=== PATIENT | female | born 1995 | race Caucasian/White ===

== ENCOUNTER 2017-09-18 11:22 | Emergency (ER) | payer OTHER ==
[~2017-09-18] VITALS: Ht 167.6 cm; Wt 81.6 kg
[2017-09-18 11:57] VITALS: BP 124/73
--- NOTE | 2017-09-18 12:08 | PHYS DOC ---
Past Medical History Past Medical History: Migraines Past Surgical History: No Surgical History Alcohol Use: None Drug Use: None Adult General Chief Complaint Chief Complaint: MULTIPLE COMPLAINTS HPI HPI Patient is a 22 year old female presents to the emergency department with a history of sore throat, nasal congestion and sinus tightness for the last 5 days. Patient states when lays down is the worst. She states today she felt like she was drowning in her own secretions. Patient denies fever, chills, nausea or vomiting. Review of Systems Review of Systems Constitutional: Denies fever or chills [] Eyes: Denies change in visual acuity, redness, or eye pain [] HENT: nasal congestion and sore throat [] Respiratory: cough denies shortness of breath [] Cardiovascular: No additional information not addressed in HPI [] GI: Denies abdominal pain, nausea, vomiting, bloody stools or diarrhea [] : Denies dysuria or hematuria [] Musculoskeletal: Denies back pain or joint pain [] Integument: Denies rash or skin lesions [] Neurologic: Denies headache, focal weakness or sensory changes [] Endocrine: Denies polyuria or polydipsia [] All other systems were reviewed and found to be within normal limits, except as documented in this note. Allergies Allergies Allergies Coded Allergies Type Severity Reaction Last Updated Verified No Known Drug Allergies 09/18/17 No Physical Exam Physical Exam Constitutional: Well developed, well nourished, no acute distress, non-toxic appearance. [] HENT: Normocephalic, atraumatic, bilateral external ears normal, oropharynx moist, no oral exudates, nose normal. Bilateral TM appear full without redness, Throat with bright redness noted, Post nasal drip noted. No anterior cervical adenopathy noted. Eyes: PERRLA, EOMI, conjunctiva normal, no discharge. [] Neck: Normal range of motion, no tenderness, supple, no stridor. [] Cardiovascular:Heart rate regular rhythm, no murmur [] Lungs & Thorax: Bilateral breath sounds clear to auscultation [] Skin: Warm, dry, no erythema, no rash. [] Extremities: No tenderness, no cyanosis, no clubbing, ROM intact, no edema. [] Neurologic: Alert and oriented X 3, normal motor function, normal sensory function, no focal deficits noted. [] Psychologic: Affect normal, judgement normal, mood normal. [] Current Patient Data Vital Signs Vital Signs Date Time Temp Pulse Resp B/P (MAP) Pulse Ox O2 Delivery O2 Flow Rate FiO2 09/18/17 11:57 97.7 106 20 124/73 (90) 100 Room Air 97.7 Lab Values Laboratory Tests Test 09/18/17 12:09 POC Urine HCG, Qualitative Hcg negative (Negative) EKG EKG [] Radiology/Procedures Radiology/Procedures [] Course & Med Decision Making Course & Med Decision Making Pertinent Labs and Imaging studies reviewed. (See chart for details) Rapid strep was negative. Urine test was negative. Patient will be placed on Augmentin 1 tablet twice a day for the next 10 days. Recommended Sudafed to help with the nasal congestion. Also recommended Mucinex DM to help with cough. Patient will be discharged home in stable condition with recommendations for plenty of fluids. Signs and symptoms return back to the emergency department has been provided. All questions and concerns have been answered at the patients bedside. I've spoken with the patient and/or caregivers. I've explained the patient's condition, diagnosis and treatment plan based on information available to me at this time. I've answered the patient's and/or caregivers questions and addressed any concerns. The patient and/or caregivers have a good understanding the patient's diagnosis, condition and treatment plan as can be expected at this point. Vital signs have been stabilized. The patient's condition is stable for discharge from the emergency department. The patient will pursue further outpatient evaluation with her primary care provider or other designated consulting physician as outlined in the discharge instructions. Patient and/or caregivers are agreeable to this plan of care and follow-up instructions have been explained in detail. The patient and/or caregivers have received these instructions in written format and expressed understanding of these discharge instructions. The patient and her caregivers are aware that if any significant change in condition or worsening of symptoms should prompt him to immediately return to this of the closest emergency department. If an emergent department is not readily available I would encourage him to call 911. [] Dragon Disclaimer Dragon Disclaimer This electronic medical record was generated, in whole or in part, using a voice recognition dictation system. Departure Departure Impression: Primary Impression: URI (upper respiratory infection) Disposition: HOME, SELF-CARE Condition: STABLE Referrals: JAMESON MUÑIZ (PCP) Patient Instructions: Upper Respiratory Infection, Adult, [id number] Additional Instructions: Activity as tolerated Tylenol or Ibuprofen for fever, chills or generalized body aches Sudafed and Mucinex DM as directed by manufacture Drink plenty of fluids Warm salt water gargles may help the throat Followup with primary care provider in 5-7 days Return to emergency department as needed for signs and symptoms that become worse. Scripts Amoxicillin/Potassium Clav (AUGMENTIN 875-125 TABLET) 1 Each Tablet 1 TAB PO BID, #20 TAB Prov: DAVID HENDERSON APRN 09/18/17 Problem Qualifiers Primary Impression: URI (upper respiratory infection) URI type: unspecified URI Qualified Codes: J06.9 - Acute upper respiratory infection, unspecified DAVID HENDERSON APRN Sep 18, 2017 12:08
[2017-09-18] MEDS ORDERED: AMOX1TAB61 PO (12:23)
[2017-09-19 08:19] LABS: NEGATIVE OBC STREP NEG; POSITIVE OBC STREP POS
== END 2017-09-18 12:30 | disposition home or self-care (01) ==
LOC: ER 11:22
DX: J06.9 Acute upper respiratory infection, unspecified (principal); G43.909 Migraine, unspecified, not intractable, without status migrainosus
CPT/HCPCS: 81025; 87070; 87880; 99284

== ENCOUNTER → 2018-07-14 | Outpatient (CLI) | payer OTHER ==
[~2018-07-14] MED LIST: AMOX1TAB61 PO
[2018-07-14 11:04] LABS: BASO % 0 % (0-3); EOS # 0.1 x10^3/uL (0.0-0.7); EOS % 1 % (0-3); HEMATOCRIT 39.6 % (36.0-47.0); HEMOGLOBIN 13.6 g/dL (12.0-15.5); LYMPH # 2.7 x10^3/uL (1.0-4.8); LYMPH % 21 % (24-48); MEAN CORPUSCULAR HEMOGLOBIN 29 pg (25-35); MEAN CORPUSCULAR HGB CONC 34 g/dL (31-37); MEAN CORPUSCULAR VOLUME 84 fL (79-100); MONO # 0.9 x10^3/uL (0.0-1.1); MONO % 7 % (0-9); NEUT # 9.5 x10^3uL (1.8-7.7); NEUT % 72 % (31-73); PLATELET COUNT 278 x10^3/uL (140-400); RED BLOOD COUNT 4.74 x10^6/uL (3.50-5.40); RED CELL DISTRIBUTION WIDTH 14.2 % (11.5-14.5); WHITE BLOOD COUNT 13.2 x10^3/uL (4.0-11.0)
== END | disposition home or self-care (01) ==
LOC: LAB 10:39
PROVIDERS: ATTEND Obstetrics & Gynecology
DX: Z32.01 Encounter for pregnancy test, result positive (principal); G43.909 Migraine, unspecified, not intractable, without status migrainosus
CPT/HCPCS: 85025; 86592; 86703; 86850; 86900; 86901; 87340

== ENCOUNTER → 2018-09-27 | Outpatient (CLI) | payer OTHER ==
--- NOTE | 2018-09-27 04:29 | RAD ---
INDICATION: Unknown dates of with evaluation of anatomy requested.. COMPARISON: No priors. TECHNIQUE: Grayscale and color ultrasound images obtained through the uterus. Findings: Single intrauterine fetus is seen. Placenta is posterior. Placental cord insertion seen. Cephalic presentation. The maturity is as follows. Estimated weight: 228 grams. The composite maturity is 18 weeks and 3 days ITALIA of 8.5 cm. Cervical length: 4.2cm. heart rate: 145 beats per minute. Four-chamber heart is seen Three-vessel cord is seen. Abdominal wall cord insertion is seen. Fluid-filled stomach and urinary bladder are seen. Bilateral kidneys are visualized. Craniocervical junction and spine is seen. BPD 42 mm, 18 week 5 day Head circumference 157 mm, 18 week 4 day Abdominal circumference 122 mm, 17 weeks 6 day Femur length 27 mm, 18 week 3 day Head circumference to abdominal circumference ratio 1.28. Impression: 1. Single live intrauterine fetus identified with positive cardiac activity. 2. The composite maturity is 18 weeks and 3 days with a sonographic EDC of 02/25/2019. 3. Estimated weight of 228 g. Electronically signed by: Darrius Ashford MD (09/27/2018 4:25 AM) [facility]
== END | disposition home or self-care (01) ==
LOC: US 02:05
PROVIDERS: ATTEND Obstetrics & Gynecology
DX: O26.842 Uterine size-date discrepancy, second trimester (principal); Z3A.18 18 weeks gestation of pregnancy
CPT/HCPCS: 76805

== ENCOUNTER 2018-12-04 11:37 | Observation (INO) | payer OTHER ==
[2018-12-04 12:31] LABS: BILIRUBIN,URINE NEGATIVE (NEG); CLARITY,URINE CLOUDY; COLOR,URINE YELLOW; NITRITE,URINE NEGATIVE (NEG); PH,URINE 7.5; PROTEIN,URINE NEGATIVE (NEG-TRACE); UROBILINOGEN,URINE 0.2 mg/dL (0.2 mg/dL)
[2018-12-04 12:47] LABS: SQUAMOUS EPITHELIAL CELL,UR MANY /LPF
[2018-12-04 12:48] LABS: RBC,URINE OCC /HPF (0-2)
[2018-12-04 12:50] LABS: BACTERIA,URINE MODERATE /HPF (0-FEW)
== END 2018-12-04 14:25 | disposition home or self-care (01) ==
LOC: 3 SO LND 11:37
PROVIDERS: ADMIT Obstetrics & Gynecology; ATTEND Obstetrics & Gynecology
DX: O26.893 Other specified pregnancy related conditions, third trimester (principal); R10.9 Unspecified abdominal pain; Z3A.28 28 weeks gestation of pregnancy
CPT/HCPCS: 81001; 87086; G0378; G0379

== ENCOUNTER 2019-02-07 05:33 | Observation (INO) | payer OTHER ==
[2019-02-07] MEDS ORDERED: IV RINGERS,LACTATED 1000ML 1,000 ML IV PRN (05:45)
[2019-02-07 06:04] LABS: BILIRUBIN,URINE NEGATIVE (NEG); CLARITY,URINE CLEAR; COLOR,URINE YELLOW; NITRITE,URINE NEGATIVE (NEG); PH,URINE 6.5; PROTEIN,URINE NEGATIVE (NEG-TRACE); UROBILINOGEN,URINE 0.2 mg/dL (0.2 mg/dL)
[2019-02-07 06:22] LABS: BACTERIA,URINE FEW /HPF (0-FEW); RBC,URINE 0 /HPF (0-2); SQUAMOUS EPITHELIAL CELL,UR MANY /LPF
== END 2019-02-07 09:56 | disposition home or self-care (01) ==
LOC: 3 SO LND 05:33
PROVIDERS: ADMIT Obstetrics & Gynecology; ATTEND Obstetrics & Gynecology
DX: O62.9 Abnormality of forces of labor, unspecified (principal); O26.893 Other specified pregnancy related conditions, third trimester; M54.9 Dorsalgia, unspecified; Z3A.37 37 weeks gestation of pregnancy; Z91.040 Latex allergy status
CPT/HCPCS: 81001; G0378; G0379

== ENCOUNTER 2019-02-16 11:20 | Observation (INO) | payer OTHER ==
[2019-02-16] MEDS ORDERED: IV RINGERS,LACTATED 1000ML 1,000 ML IV SCH (12:15)
== END 2019-02-16 13:45 | disposition home or self-care (01) ==
LOC: 3 SO LND 11:20
PROVIDERS: ADMIT Obstetrics & Gynecology; ATTEND Obstetrics & Gynecology
DX: O62.9 Abnormality of forces of labor, unspecified (principal); Z3A.38 38 weeks gestation of pregnancy
CPT/HCPCS: G0378; G0379

== ENCOUNTER 2019-02-25 05:54 | Inpatient (IN) | payer OTHER ==
[~2019-02-25] VITALS: Ht 165.1 cm; Wt 100.2 kg
[2019-02-25] MEDS ORDERED: TERBUTALINE 1 MG/ML VIAL. SQ PRN (06:00)
[2019-02-25] MEDS ORDERED: 0.9 % SODIUM CHLORIDE 10 ML DISP.SYRIN. IV PRN ×2 (06:00→18:45)
[2019-02-25] MEDS ORDERED: LIDOCAINE 1% PF 30 ML VIAL. INJ PRN (06:00)
[2019-02-25] MEDS ORDERED: NALBUPHINE 10 MG/ML AMPUL. IV PRN (06:00)
[2019-02-25] MEDS ORDERED: ONDANSETRON PF 4 MG/2 ML VIAL. IV PRN ×2 (06:00→18:45)
[2019-02-25] MEDS ORDERED: ACETAMINOPHEN 325 MG TABLET. PO PRN (06:00)
[2019-02-25] MEDS ORDERED: OXYTOCIN 30 UNIT/500 ML PREMIX 500 ML IV PRN ×3 (06:00→18:45)
[2019-02-25] MEDS ORDERED: fentaNYL PF VIAL 100 MCG/2 ML VIAL IV PRN ×2 (06:00)
[2019-02-25 06:51] LABS: BASO % 0 % (0-3); EOS # 0.1 x10^3/uL (0.0-0.7); EOS % 1 % (0-3); HEMATOCRIT 34.1 % (36.0-47.0); HEMOGLOBIN 11.1 g/dL (12.0-15.5); LYMPH % 21 % (24-48); MEAN CORPUSCULAR HEMOGLOBIN 25 pg (25-35); MEAN CORPUSCULAR HGB CONC 33 g/dL (31-37); MEAN CORPUSCULAR VOLUME 78 fL (79-100); MONO % 7 % (0-9); NEUT # 10.3 x10^3uL (1.8-7.7); NEUT % 71 % (31-73); PLATELET COUNT 305 x10^3/uL (140-400); RED BLOOD COUNT 4.39 x10^6/uL (3.50-5.40); RED CELL DISTRIBUTION WIDTH 17.4 % (11.5-14.5); WHITE BLOOD COUNT 14.5 x10^3/uL (4.0-11.0)
[2019-02-25 06:57] LABS: BILIRUBIN,URINE NEGATIVE (NEG); CLARITY,URINE CLEAR; COLOR,URINE YELLOW; NITRITE,URINE NEGATIVE (NEG); PROTEIN,URINE NEGATIVE (NEG-TRACE)
[2019-02-25] MEDS ORDERED: OXYTOCIN PREMIX 30 UNIT/500 ML BAG. IV ONE (07:00)
[2019-02-25 07:15] LABS: BACTERIA,URINE MODERATE /HPF (0-FEW); RBC,URINE 0 /HPF (0-2); SQUAMOUS EPITHELIAL CELL,UR MANY /LPF
--- NOTE | 2019-02-25 08:29 | PDOC1 ---
OB - History Hx of Present Care: Good Care Ultrasounds: Normal mid trimester US Obstetrical Complications: None Medical Complications: None Past Family/Social History * Past Medical, Surgical, Family and Obstetric Histories reviewed from chart. Rubella: Immune RPR/VDRL: Negative GBS Status: Negative HBsAG: Negative OB - Chief Complaint & HPI Date of Admission: Date of Admission: February 25, 2019 at 05:54 Chief Complaint/History : 1 Para: 0 EGA: 39 Reason for admission: induction of labor Indication for induction: maternal discomfort Admission Nurse Assessment Rev: Yes OB - Admission Exam Physical Exam HEENT: Normal Heart: Regular Rate Lungs: Clear Abdomen: Gravid, Non tender, Soft Extremities: Edema Reflexes: Normal Cervical Dilatation: 4cm Effacement: 75% Station: -3 Membranes: Intact Heart Rate: Normal Accelerations: Accelerations Present Decelerations: No decelerations Contractions on Admission: >10 Minutes Apart Intensity: Mild Text A: 39 wks IUP IOL secondary maternal discomforts and advanced cervical dilation P: Start Pitocin IOL. ESTHER ABDULLAHI Jr, MD February 25, 2019 08:29
[2019-02-25] MEDS ORDERED: ROPIVacaine 0.2% PF 10 ML VIAL. ONE ×2 (09:53→12:00)
[2019-02-25] MEDS ORDERED: NALOXONE 0.4 MG/ML VIAL. IV PRN (10:00)
[2019-02-25] MEDS ORDERED: ePHEDrine PF IN SALINE 50 MG/10 ML SYRINGE. IV PRN (10:00)
[2019-02-25] MEDS ORDERED: ROPIVacaine 0.2% PF 10 ML VIAL. EPID PRN (10:00)
[2019-02-25] MEDS ORDERED: L&D EPIDURAL CASSETTE 100 ML EPID PRN (10:00)
[2019-02-25] MEDS: IV RINGERS,LACTATED 1000ML 1,000 ML IV SCH ×4 (10:28→19:52)
[2019-02-25] MEDS: L&D EPIDURAL SYRINGE 50 ML EPID PRN ×3 (10:30→16:58)
[2019-02-25] MEDS ORDERED: BENZOCAINE 20% TOPICAL AEROSOL SPRAY 57GM CAN. TP PRN (14:15)
[2019-02-25] MEDS ORDERED: LIDOCAINE 2% PF 5 ML VIAL. ONE ×2 (14:36→17:04)
[2019-02-25] MEDS ORDERED: CITRIC ACID/SODIUM CITRATE 30 ML SOLUTION. ONE ×2 (17:26→18:00)
[2019-02-25] MEDS ORDERED: ePHEDrine PF IN SALINE 50 MG/10 ML SYRINGE. IV ONE (17:33)
[2019-02-25] MEDS ORDERED: OXYTOCIN 10 UNIT/ML VIAL. ONE ×5 (17:34→17:59)
[2019-02-25] MEDS ORDERED: ceFAZolin 2GM PREMIX 2 GM/50 ML BAG IV ONE (18:00)
[2019-02-25] MEDS ORDERED: MORPHINE PF 5 MG/10 ML VIAL. ONE (18:04)
[2019-02-25] MEDS ORDERED: ONDANSETRON PF 4 MG/2 ML VIAL. ONE (18:10)
--- NOTE | 2019-02-25 18:34 | PDOC4 ---
OB Operative Note Date: February 25, 2019 PRE OP DIAGNOSIS: NRFHT (FTP) POST OP DIAGNOSIS: Other (Same) OPERATION PERFORMED: L [facility] Surgeon Dr. Miller Anesthesia: Regional (Epidural) Blood Loss 700 ml Specimen placenta and OB Findings: Position (Vertex), Sex (Male), (8/9), Weight (3145 Gram), Fluid (Meconium) Complications none Additional Remarks pt. stable ESTHER MILLER Jr, MD February 25, 2019 18:34
[2019-02-25] MEDS ORDERED: IBUPROFEN 400 MG TABLET. PO PRN (18:45)
[2019-02-25] MEDS ORDERED: ZOLPIDEM 5 MG TABLET. PO PRN (18:45)
[2019-02-25] MEDS ORDERED: SIMETHICONE 80 MG TAB.CHEW PO PRN (18:45)
[2019-02-25] MEDS ORDERED: KETOROLAC 30 MG/ML VIAL. IV PRN (18:45)
[2019-02-25] MEDS ORDERED: MAG HYDROX/ALUMINUM HYD/SIMETH 30 ML ORAL.SUSP PO PRN (18:45)
[2019-02-25] MEDS ORDERED: diphenhydrAMINE ORAL ELIXIR 12.5 MG/5 ML ML PO PRN (18:45)
[2019-02-25] MEDS ORDERED: oxyCODONE/APAP 5/325 1 TAB TABLET PO PRN (18:45)
--- NOTE | 2019-02-25 21:09 | OP ---
DATE OF SURGERY: PREOPERATIVE DIAGNOSES: 1. 39 weeks intrauterine . 2. intolerance to labor. 3. Failure to progress. POSTOPERATIVE DIAGNOSES: 1. 39 weeks intrauterine . 2. intolerance to labor. 3. Failure to progress. PROCEDURE: Primary low transverse section. SURGEON: Esther Miller MD ANESTHESIA: Epidural. ESTIMATED BLOOD LOSS: 700 mL. COMPLICATIONS: None. FINDINGS: Viable male , Apgars 8 and 9, weight 3145 grams, three-vessel cord, placenta delivered manually. COMPLICATIONS: None. SUMMARY: A 23-year-old 1 at 39 weeks presented for induction of labor secondary to maternal discomforts with and advanced cervical dilation. The patient started at 4 cm and never progressed past 5 cm. She had moderate stained meconium amniotic fluid. The patient was intolerant of labor. The patient required emergency section. She was counseled on the risks, benefits and expectations and voiced clear understanding to proceed. DESCRIPTION OF PROCEDURE: The patient was taken to surgery suite and placed in dorsal supine position. She was prepped with ChloraPrep and draped in sterile fashion. After adequate anesthesia, Pfannenstiel skin incision was made with scalpel down to and through the fascia. The fascia was extended laterally using curved Jarvis scissors. The superior edge of the fascia was grasped with 2 Twyla clamps and dissected free of the abdominal rectus muscles using blunt dissection along with Bovie cautery. Same process took place inferiorly. The abdominal rectus muscles were then dissected bluntly at the midline. Peritoneum was grasped with 2 hemostats, entered sharply with Metzenbaum scissors. This incision was extended superiorly as well as inferiorly. The Romel ring retractor was placed. Low transverse hysterotomy incision was made with scalpel down to the . The hysterotomy incision was extended laterally and superiorly digitally. With the aid of fundal pressure, the 's head was delivered in a smooth atraumatic manner. With additional fundal pressure, the anterior shoulder was delivered followed by posterior shoulder and rest of the male was delivered. Infant was suctioned with bulb syringe orally and nasally, umbilical cord was clamped twice and cut and a viable male was handed to waiting nursing staff. Umbilical cord blood was then obtained as well as arterial pH. Three-vessel cord placenta was delivered manually. The uterus was then exteriorized and cleared of clot and debris with a moist lap. Hysterotomy incision was reapproximated using 1 Vicryl suture in running locked fashion. Uterus palpated firm. Fallopian tubes and ovaries appeared normal bilaterally. Posterior cul-de-sac was cleared of clot and debris with a moist lap. The uterus was then returned to the abdomen. Pericolic gutters were cleared of clot and debris with a moist lap. Hysterotomy incision was hemostatic. The Romel ring retractor was removed. Peritoneum was reapproximated using #1 Vicryl suture in a running fashion. Fascia was reapproximated using 0 Vicryl suture in running fashion. Skin was reapproximated using 4-0 Vicryl suture in subcuticular manner. The patient tolerated the procedure well, was sent to recovery room in stable condition. Sponge and needle count correct x 3. ESTHER MILLER MD DR: SEDRICK/elisabeth JOB#: [id number] / [id number]
[2019-02-25 21:30] VITALS: BP 111/65
[2019-02-25 23:30] VITALS: BP 108/66
[2019-02-26] MEDS ORDERED: diphenhydrAMINE 50 MG/ML VIAL IVP PRN
[2019-02-26] MEDS ORDERED: diphenhydrAMINE HCL 25 MG CAPSULE PO PRN
[2019-02-26] MEDS: IV RINGERS,LACTATED 1000ML 1,000 ML IV SCH ×2 (00:20→09:49)
[2019-02-26 04:44] LABS: BASO # 0.1 x10^3/uL (0.0-0.2); BASO % 0 % (0-3); EOS % 0 % (0-3); HEMATOCRIT 30.1 % (36.0-47.0); HEMOGLOBIN 9.6 g/dL (12.0-15.5); LYMPH # 2.1 x10^3/uL (1.0-4.8); LYMPH % 17 % (24-48); MEAN CORPUSCULAR HEMOGLOBIN 25 pg (25-35); MEAN CORPUSCULAR HGB CONC 32 g/dL (31-37); MEAN CORPUSCULAR VOLUME 79 fL (79-100); MONO # 0.8 x10^3/uL (0.0-1.1); MONO % 7 % (0-9); NEUT # 9.9 x10^3uL (1.8-7.7); NEUT % 76 % (31-73); PLATELET COUNT 255 x10^3/uL (140-400); RED BLOOD COUNT 3.82 x10^6/uL (3.50-5.40); RED CELL DISTRIBUTION WIDTH 17.4 % (11.5-14.5); WHITE BLOOD COUNT 12.9 x10^3/uL (4.0-11.0)
[2019-02-26 05:30] VITALS: BP 113/74
[2019-02-26] MEDS: IBUPROFEN 400 MG TABLET. PO PRN ×2 (05:46→13:22)
[2019-02-26] MEDS: DOCUSATE SODIUM 100 MG CAPSULE. PO PRN (09:07)
[2019-02-26] MEDS: FERROUS SULFATE 325 MG TABLET. PO SCH ×2 (09:07→17:00)
--- NOTE | 2019-02-26 16:08 | PDOC ---
OB Progress Note Date of Service 02/26/19 Time of Evaluation 1605 Notes PT. sleeping well. Pain controlled. Lab Laboratory Tests Test 02/25/19 06:15 02/25/19 06:20 02/26/19 04:30 Urine Collection Type Unknown Urine Color Yellow Urine Clarity Clear Urine pH 6.0 Urine Specific Hartman 1.015 Urine Protein Negative mg/dL (NEG-TRACE) Urine Glucose (UA) Negative mg/dL (NEG) Urine Ketones (Stick) Negative mg/dL (NEG) Urine Blood Negative (NEG) Urine Nitrite Negative (NEG) Urine Bilirubin Negative (NEG) Urine Urobilinogen Dipstick 1.0 mg/dL (0.2 mg/dL) Urine Leukocyte Esterase Moderate (NEG) Urine RBC 0 /HPF (0-2) Urine WBC 5-10 /HPF (0-4) Urine Squamous Epithelial Cells Many /LPF Urine Bacteria Moderate /HPF (0-FEW) White Blood Count 14.5 x10^3/uL (4.0-11.0) 12.9 x10^3/uL (4.0-11.0) Red Blood Count 4.39 x10^6/uL (3.50-5.40) 3.82 x10^6/uL (3.50-5.40) Hemoglobin 11.1 g/dL (12.0-15.5) 9.6 g/dL (12.0-15.5) Hematocrit 34.1 % (36.0-47.0) 30.1 % (36.0-47.0) Mean Corpuscular Volume 78 fL (79-100) 79 fL (79-100) Mean Corpuscular Hemoglobin 25 pg (25-35) 25 pg (25-35) Mean Corpuscular Hemoglobin Concent 33 g/dL (31-37) 32 g/dL (31-37) Red Cell Distribution Width 17.4 % (11.5-14.5) 17.4 % (11.5-14.5) Platelet Count 305 x10^3/uL (140-400) 255 x10^3/uL (140-400) Neutrophils (%) (Auto) 71 % (31-73) 76 % (31-73) Lymphocytes (%) (Auto) 21 % (24-48) 17 % (24-48) Monocytes (%) (Auto) 7 % (0-9) 7 % (0-9) Eosinophils (%) (Auto) 1 % (0-3) 0 % (0-3) Basophils (%) (Auto) 0 % (0-3) 0 % (0-3) Neutrophils # (Auto) 10.3 x10^3uL (1.8-7.7) 9.9 x10^3uL (1.8-7.7) Lymphocytes # (Auto) 3.0 x10^3/uL (1.0-4.8) 2.1 x10^3/uL (1.0-4.8) Monocytes # (Auto) 1.0 x10^3/uL (0.0-1.1) 0.8 x10^3/uL (0.0-1.1) Eosinophils # (Auto) 0.1 x10^3/uL (0.0-0.7) 0.0 x10^3/uL (0.0-0.7) Basophils # (Auto) 0.0 x10^3/uL (0.0-0.2) 0.1 x10^3/uL (0.0-0.2) Treponema pallidum Antibody Nonreactive (Nonreactive) Laboratory Tests Test 02/26/19 04:30 White Blood Count 12.9 x10^3/uL (4.0-11.0) Red Blood Count 3.82 x10^6/uL (3.50-5.40) Hemoglobin 9.6 g/dL (12.0-15.5) Hematocrit 30.1 % (36.0-47.0) Mean Corpuscular Volume 79 fL (79-100) Mean Corpuscular Hemoglobin 25 pg (25-35) Mean Corpuscular Hemoglobin Concent 32 g/dL (31-37) Red Cell Distribution Width 17.4 % (11.5-14.5) Platelet Count 255 x10^3/uL (140-400) Neutrophils (%) (Auto) 76 % (31-73) Lymphocytes (%) (Auto) 17 % (24-48) Monocytes (%) (Auto) 7 % (0-9) Eosinophils (%) (Auto) 0 % (0-3) Basophils (%) (Auto) 0 % (0-3) Neutrophils # (Auto) 9.9 x10^3uL (1.8-7.7) Lymphocytes # (Auto) 2.1 x10^3/uL (1.0-4.8) Monocytes # (Auto) 0.8 x10^3/uL (0.0-1.1) Eosinophils # (Auto) 0.0 x10^3/uL (0.0-0.7) Basophils # (Auto) 0.1 x10^3/uL (0.0-0.2) Medications Current Medications Sodium Chloride (Normal Saline Flush) 3 ml QSHIFT PRN IV AFTER MEDS AND BLOOD DRAWS; Start 02/25/19 at 06:00; Stop 02/26/19 at 00:05; Status DC Ringer's Solution 1,000 ml @ 125 mls/hr Q8H IV Last administered on 02/25/19at 17:09; Start 02/25/19 at 05:58; Stop 02/26/19 at 00:05; Status DC Nalbuphine HCl (Nubain) 10 mg PRN Q1HR PRN IV Severe labor pain; Start 02/25/19 at 06:00 Fentanyl Citrate (Fentanyl 2ml Vial) 100 mcg PRN Q30MIN PRN IV Severe pain; Start 02/25/19 at 06:00 Fentanyl Citrate (Fentanyl 2ml Vial) 50 mcg PRN Q10MIN PRN IV Labor pain; Start 02/25/19 at 06:00 Acetaminophen (Tylenol) 650 mg PRN Q6HRS PRN PO MILD PAIN / TEMP; Start 02/25/19 at 06:00 Ondansetron HCl (Zofran) 4 mg PRN Q4HRS PRN IV NAUSEA/VOMITING; Start 02/25/19 at 06:00; Stop 02/26/19 at 00:05; Status DC Terbutaline Sulfate (Brethine) 0.25 mg 1X PRN PRN SQ SEE COMMENTS; Start 02/25/19 at 06:00; Stop 02/26/19 at 05:59; Status DC Lidocaine HCl (Xylocaine 1% Pf 30ml Vial) 30 ml 1X PRN PRN INJ SEE COMMENTS; Start 02/25/19 at 06:00; Stop 02/27/19 at 05:59 Oxytocin/Sodium Chloride 500 ml @ 0 mls/hr CONT PRN IV SEE I/O RECORD; Start 02/25/19 at 06:00; Stop 02/26/19 at 00:05; Status DC Oxytocin/Sodium Chloride 500 ml @ 0 mls/hr CONT PRN PRN IV Post delivery bleeding; Start 02/25/19 at 06:00; Stop 02/26/19 at 00:05; Status DC Ibuprofen (Motrin) 800 mg PRN Q6HRS PRN PO PAIN Last administered on 02/26/19at 13:22; Start 02/25/19 at 06:00 Ropivacaine/ Fentanyl/NS 100 ml @ 14 mls/hr CONT PRN EPID PAIN; Start 02/25/19 at 10:00; Stop 02/26/19 at 08:59; Status UNV Ringer's Solution 1,000 ml @ 125 mls/hr Q8H IV Last administered on 02/26/19at 00:20; Start 02/25/19 at 09:49; Stop 02/26/19 at 11:01; Status DC Ephedrine Sulfate (ePHEDrine PF IN SALINE SYRINGE) 10 mg PRN Q2MIN PRN IV IF SBP<90; Start 02/25/19 at 10:00 Naloxone HCl (Narcan) 0.04 mg PRN Q1MIN PRN IV SEE COMMENTS; Start 02/25/19 at 10:00 Ropivacaine (Naropin 0.2%) 40 ml PRN 1X PRN EPID SEE COMMENTS; Start 02/25/19 at 10:00 Ropivacaine/ Fentanyl/NS 50 ml @ 14 mls/hr CONT PRN EPID PAIN Last administered on 02/25/19at 16:58; Start 02/25/19 at 10:00 Ropivacaine (Naropin 0.2%) 10 ml STK-MED ONCE .ROUTE ; Start 02/25/19 at 09:53; Stop 02/25/19 at 09:54; Status DC Oxytocin/Sodium Chloride (Oxytocin Premix Infusion) 30 unit STK-MED ONCE IV ; Start 02/25/19 at 07:00; Stop 02/25/19 at 12:15; Status DC Benzocaine (Americaine) 1 spray PRN Q4HRS PRN TP PAIN Last administered on 02/25at 14:10; Start 02/25/19 at 14:15 Lidocaine HCl (Lidocaine Pf 2% Vial) 5 ml STK-MED ONCE .ROUTE ; Start 02/25/19 at 14:36; Stop 02/25/19 at 14:37; Status DC Lidocaine HCl (Lidocaine Pf 2% Vial) 5 ml STK-MED ONCE .ROUTE ; Start 02/25/19 at 17:04; Stop 02/25/19 at 17:05; Status DC Cefazolin Sodium/ Dextrose 50 ml @ 100 mls/hr 1X ONCE IV ; Start 02/25/19 at 17:30; Stop 02/25/19 at 17:59; Status DC Citric Acid/ Sodium Citrate (Bicitra) 30 ml STK-MED ONCE .ROUTE ; Start 02/25/19 at 17:26; Stop 02/25/19 at 17:27; Status DC Ephedrine Sulfate (ePHEDrine PF IN SALINE SYRINGE) 50 mg STK-MED ONCE IV ; Start 02/25/19 at 17:33; Stop 02/25/19 at 17:34; Status DC Oxytocin (Pitocin) 10 unit STK-MED ONCE .ROUTE ; Start 02/25/19 at 17:34; Stop 02/25/19 at 17:35; Status DC Oxytocin (Pitocin) 10 unit STK-MED ONCE .ROUTE ; Start 02/25/19 at 17:34; Stop 02/25/19 at 17:35; Status DC Oxytocin (Pitocin) 10 unit STK-MED ONCE .ROUTE ; Start 02/25/19 at 17:34; Stop 02/25/19 at 17:35; Status DC Oxytocin (Pitocin) 10 unit STK-MED ONCE .ROUTE ; Start 02/25/19 at 17:59; Stop 02/25/19 at 18:00; Status DC Oxytocin (Pitocin) 10 unit STK-MED ONCE .ROUTE ; Start 02/25/19 at 17:59; Stop 02/25/19 at 18:00; Status DC Morphine Sulfate (Morphine Preservative Free) 5 mg STK-MED ONCE .ROUTE ; Start 02/25/19 at 18:04; Stop 02/25/19 at 18:05; Status DC Ondansetron HCl (Zofran) 4 mg STK-MED ONCE .ROUTE ; Start 02/25/19 at 18:10; Stop 02/25/19 at 18:11; Status DC Sodium Chloride (Normal Saline Flush) 3 ml QSHIFT PRN IV AFTER MEDS AND BLOOD DRAWS; Start 02/25/19 at 18:45 Oxytocin/Sodium Chloride 500 ml @ 125 mls/hr CONT PRN IV EXCESSIVE POST- BLEEDING; Start 02/25/19 at 18:45; Stop 02/26/19 at 02:44; Status DC Ibuprofen (Motrin) 800 mg PRN Q4HRS PRN PO INFLAMMATION; Start 02/25/19 at 18:45; Status Cancel Ondansetron HCl (Zofran) 4 mg PRN Q6HRS PRN IV NAUSEA/VOMITING; Start 02/25/19 at 18:45 Docusate Sodium (Colace) 100 mg PRN BID PRN PO CONSTIPATION Last administered on 02/26/19at 09:07; Start 02/25/19 at 18:45 Al Hydroxide/Mg Hydroxide (Mylanta Plus Xs) 30 ml PRN Q4HRS PRN PO HEARTBURN / GAS; Start 02/25/19 at 18:45 Simethicone (Gas-X) 80 mg PRN AFTMEALHC PRN PO GAS / BLOATING; Start 02/25/19 at 18:45 Diphenhydramine HCl (Benadryl Oral Elixir) 12.5 mg PRN Q6HRS PRN PO ITCHING; Start 02/25/19 at 18:45 Ferrous Sulfate (Feosol) 325 mg BIDWMEALS PO Last administered on 02/26/19at 09:07; Start 02/26/19 at 08:00 Zolpidem Tartrate (Ambien) 5 mg PRN QHS PRN PO INSOMNIA, MAY REPEAT X1; Start 02/25/19 at 18:45 Oxycodone/ Acetaminophen (Percocet 5/325) 2 tab PRN Q4HRS PRN PO MODERATE PAIN, SEVERE PAIN Last administered on 02/26/19at 05:46; Start 02/25/19 at 18:45 Ketorolac Tromethamine (Toradol 30mg Vial) 30 mg PRN Q6HRS PRN IV PAIN Last administered on 02/25/19at 20:38; Start 02/25/19 at 18:45; Stop 03/02/19 at 18:44 Diphenhydramine HCl (Benadryl) 50 mg PRN Q6HRS PRN PO ITCHING; Start 02/26/19 at 00:00 Diphenhydramine HCl (Benadryl) 25 mg PRN Q6HRS PRN IVP ITCHING Last administered on 02/26/19at 00:20; Start 02/26/19 at 00:00 Active Scripts Active Augmentin 875-125 Tablet (Amoxicillin/Potassium Clav) 1 Each Tablet 1 Tab PO BID Exam Bandage in place and dry per nursing. Assessment POD#1 s/p c/s Plan of Care: Continue current Tx, Mgmt ESTHER ABDULLAHI Jr, MD February 26, 2019 16:08
[2019-02-26 18:06] VITALS: BP 112/64
[2019-02-26 20:30] VITALS: BP 109/65
[2019-02-27 03:20] VITALS: BP 100/61
[2019-02-27] MEDS: IBUPROFEN 400 MG TABLET. PO PRN ×2 (03:25→17:14)
[2019-02-27 11:20] VITALS: BP 114/66
--- NOTE | 2019-02-27 13:39 | PDOC ---
OB Progress Note Date of Service 02/27/19 Time of Evaluation 1340 Notes PT. feeling well. Pain controlled. Breast feeding. Lab Laboratory Tests Test 02/26/19 04:30 White Blood Count 12.9 x10^3/uL (4.0-11.0) Red Blood Count 3.82 x10^6/uL (3.50-5.40) Hemoglobin 9.6 g/dL (12.0-15.5) Hematocrit 30.1 % (36.0-47.0) Mean Corpuscular Volume 79 fL (79-100) Mean Corpuscular Hemoglobin 25 pg (25-35) Mean Corpuscular Hemoglobin Concent 32 g/dL (31-37) Red Cell Distribution Width 17.4 % (11.5-14.5) Platelet Count 255 x10^3/uL (140-400) Neutrophils (%) (Auto) 76 % (31-73) Lymphocytes (%) (Auto) 17 % (24-48) Monocytes (%) (Auto) 7 % (0-9) Eosinophils (%) (Auto) 0 % (0-3) Basophils (%) (Auto) 0 % (0-3) Neutrophils # (Auto) 9.9 x10^3uL (1.8-7.7) Lymphocytes # (Auto) 2.1 x10^3/uL (1.0-4.8) Monocytes # (Auto) 0.8 x10^3/uL (0.0-1.1) Eosinophils # (Auto) 0.0 x10^3/uL (0.0-0.7) Basophils # (Auto) 0.1 x10^3/uL (0.0-0.2) Medications Current Medications Sodium Chloride (Normal Saline Flush) 3 ml QSHIFT PRN IV AFTER MEDS AND BLOOD DRAWS; Start 02/25/19 at 06:00; Stop 02/26/19 at 00:05; Status DC Ringer's Solution 1,000 ml @ 125 mls/hr Q8H IV Last administered on 02/25/19at 17:09; Start 02/25/19 at 05:58; Stop 02/26/19 at 00:05; Status DC Nalbuphine HCl (Nubain) 10 mg PRN Q1HR PRN IV Severe labor pain; Start 02/25/19 at 06:00 Fentanyl Citrate (Fentanyl 2ml Vial) 100 mcg PRN Q30MIN PRN IV Severe pain; Start 02/25/19 at 06:00 Fentanyl Citrate (Fentanyl 2ml Vial) 50 mcg PRN Q10MIN PRN IV Labor pain; Start 02/25/19 at 06:00 Acetaminophen (Tylenol) 650 mg PRN Q6HRS PRN PO MILD PAIN / TEMP; Start 02/25/19 at 06:00 Ondansetron HCl (Zofran) 4 mg PRN Q4HRS PRN IV NAUSEA/VOMITING; Start 02/25/19 at 06:00; Stop 02/26/19 at 00:05; Status DC Terbutaline Sulfate (Brethine) 0.25 mg 1X PRN PRN SQ SEE COMMENTS; Start 02/25/19 at 06:00; Stop 02/26/19 at 05:59; Status DC Lidocaine HCl (Xylocaine 1% Pf 30ml Vial) 30 ml 1X PRN PRN INJ SEE COMMENTS; Start 02/25/19 at 06:00; Stop 02/27/19 at 05:59; Status DC Oxytocin/Sodium Chloride 500 ml @ 0 mls/hr CONT PRN IV SEE I/O RECORD; Start 02/25/19 at 06:00; Stop 02/26/19 at 00:05; Status DC Oxytocin/Sodium Chloride 500 ml @ 0 mls/hr CONT PRN PRN IV Post delivery bleeding; Start 02/25/19 at 06:00; Stop 02/26/19 at 00:05; Status DC Ibuprofen (Motrin) 800 mg PRN Q6HRS PRN PO PAIN Last administered on 02/27/19at 03:25; Start 02/25/19 at 06:00 Ropivacaine/ Fentanyl/NS 100 ml @ 14 mls/hr CONT PRN EPID PAIN; Start 02/25/19 at 10:00; Stop 02/26/19 at 08:59; Status UNV Ringer's Solution 1,000 ml @ 125 mls/hr Q8H IV Last administered on 02/26/19at 00:20; Start 02/25/19 at 09:49; Stop 02/26/19 at 11:01; Status DC Ephedrine Sulfate (ePHEDrine PF IN SALINE SYRINGE) 10 mg PRN Q2MIN PRN IV IF SBP<90; Start 02/25/19 at 10:00 Naloxone HCl (Narcan) 0.04 mg PRN Q1MIN PRN IV SEE COMMENTS; Start 02/25/19 at 10:00 Ropivacaine (Naropin 0.2%) 40 ml PRN 1X PRN EPID SEE COMMENTS; Start 02/25/19 at 10:00 Ropivacaine/ Fentanyl/NS 50 ml @ 14 mls/hr CONT PRN EPID PAIN Last administered on 02/25/19at 16:58; Start 02/25/19 at 10:00 Ropivacaine (Naropin 0.2%) 10 ml STK-MED ONCE .ROUTE ; Start 02/25/19 at 09:53; Stop 02/25/19 at 09:54; Status DC Oxytocin/Sodium Chloride (Oxytocin Premix Infusion) 30 unit STK-MED ONCE IV ; Start 02/25/19 at 07:00; Stop 02/25/19 at 12:15; Status DC Benzocaine (Americaine) 1 spray PRN Q4HRS PRN TP PAIN Last administered on 02/25/19at 14:10; Start 02/25/19 at 14:15 Lidocaine HCl (Lidocaine Pf 2% Vial) 5 ml STK-MED ONCE .ROUTE ; Start 02/25/19 at 14:36; Stop 02/25/19 at 14:37; Status DC Lidocaine HCl (Lidocaine Pf 2% Vial) 5 ml STK-MED ONCE .ROUTE ; Start 02/25/19 at 17:04; Stop 02/25/19 at 17:05; Status DC Cefazolin Sodium/ Dextrose 50 ml @ 100 mls/hr 1X ONCE IV ; Start 02/25/19 at 17:30; Stop 02/25/19 at 17:59; Status DC Citric Acid/ Sodium Citrate (Bicitra) 30 ml STK-MED ONCE .ROUTE ; Start 02/25/19 at 17:26; Stop 02/25/19 at 17:27; Status DC Ephedrine Sulfate (ePHEDrine PF IN SALINE SYRINGE) 50 mg STK-MED ONCE IV ; Start 02/25/19 at 17:33; Stop 02/25/19 at 17:34; Status DC Oxytocin (Pitocin) 10 unit STK-MED ONCE .ROUTE ; Start 02/25/19 at 17:34; Stop 02/25/19 at 17:35; Status DC Oxytocin (Pitocin) 10 unit STK-MED ONCE .ROUTE ; Start 02/25/19 at 17:34; Stop 02/25/19 at 17:35; Status DC Oxytocin (Pitocin) 10 unit STK-MED ONCE .ROUTE ; Start 02/25/19 at 17:34; Stop 02/25/19 at 17:35; Status DC Oxytocin (Pitocin) 10 unit STK-MED ONCE .ROUTE ; Start 02/25/19 at 17:59; Stop 02/25/19 at 18:00; Status DC Oxytocin (Pitocin) 10 unit STK-MED ONCE .ROUTE ; Start 02/25/19 at 17:59; Stop 02/25/19 at 18:00; Status DC Morphine Sulfate (Morphine Preservative Free) 5 mg STK-MED ONCE .ROUTE ; Start 02/25/19 at 18:04; Stop 02/25/19 at 18:05; Status DC Ondansetron HCl (Zofran) 4 mg STK-MED ONCE .ROUTE ; Start 02/25/19 at 18:10; Stop 02/25/19 at 18:11; Status DC Sodium Chloride (Normal Saline Flush) 3 ml QSHIFT PRN IV AFTER MEDS AND BLOOD DRAWS; Start 02/25/19 at 18:45 Oxytocin/Sodium Chloride 500 ml @ 125 mls/hr CONT PRN IV EXCESSIVE POST- BLEEDING; Start 02/25/19 at 18:45; Stop 02/26/19 at 02:44; Status DC Ibuprofen (Motrin) 800 mg PRN Q4HRS PRN PO INFLAMMATION; Start 02/25/19 at 18:45; Status Cancel Ondansetron HCl (Zofran) 4 mg PRN Q6HRS PRN IV NAUSEA/VOMITING; Start 02/25/19 at 18:45 Docusate Sodium (Colace) 100 mg PRN BID PRN PO CONSTIPATION Last administered on 02/26/19at 09:07; Start 02/25/19 at 18:45 Al Hydroxide/Mg Hydroxide (Mylanta Plus Xs) 30 ml PRN Q4HRS PRN PO HEARTBURN / GAS; Start 02/25/19 at 18:45 Simethicone (Gas-X) 80 mg PRN AFTMEALHC PRN PO GAS / BLOATING; Start 02/25/19 at 18:45 Diphenhydramine HCl (Benadryl Oral Elixir) 12.5 mg PRN Q6HRS PRN PO ITCHING; Start 02/25/19 at 18:45 Ferrous Sulfate (Feosol) 325 mg BIDWMEALS PO Last administered on 02/26/19at 09:07; Start 02/26/19 at 08:00; Stop 02/26/19 at 21:28; Status DC Zolpidem Tartrate (Ambien) 5 mg PRN QHS PRN PO INSOMNIA, MAY REPEAT X1; Start 02/25/19 at 18:45 Oxycodone/ Acetaminophen (Percocet 5/325) 2 tab PRN Q4HRS PRN PO MODERATE PAIN, SEVERE PAIN Last administered on 02/26/19at 05:46; Start 02/25/19 at 18:45 Ketorolac Tromethamine (Toradol 30mg Vial) 30 mg PRN Q6HRS PRN IV PAIN Last administered on 02/25/19at 20:38; Start 02/25/19 at 18:45; Stop 03/02/19 at 18:44 Diphenhydramine HCl (Benadryl) 50 mg PRN Q6HRS PRN PO ITCHING; Start 02/26/19 at 00:00 Diphenhydramine HCl (Benadryl) 25 mg PRN Q6HRS PRN IVP ITCHING Last administered on 02/26/19at 00:20; Start 02/26/19 at 00:00 Active Scripts Active Augmentin 875-125 Tablet (Amoxicillin/Potassium Clav) 1 Each Tablet 1 Tab PO BID Exam Abd: soft, non tender fundus firm Incision site: clean, dry and intact Assessment POD#2 s/p c/s Plan of Care: Continue current Tx, ESTHER Fisher Jr, MD February 27, 2019 13:39
[2019-02-27 15:35] VITALS: BP 112/64
[2019-02-27] MEDS: DOCUSATE SODIUM 100 MG CAPSULE. PO PRN (17:14)
[2019-02-27 20:25] VITALS: BP 120/76
[2019-02-28 04:50] VITALS: BP 155/90
[2019-02-28] MEDS: IBUPROFEN 400 MG TABLET. PO PRN (04:59)
--- NOTE | 2019-02-28 07:48 | PDOC3 ---
OB DISCHARGE SUMMARY DATE OF ADMISSION: 02/25/19 DATE OF DISCHARGE: 02/28/19 REASON FOR ADMISSION: Induction of labor INTRAPARTUM PROCEDURES: : Low Cerv Trans ( intolerance of labor and FTP) DISCHARGE DIAGNOSIS: Term Delivered DISCHARGE INFORMATION: Activity (ad abida), Diet (regular), Instructions (pelvic rest x 6 wks, no driving x 2 wks, no lifting > 20 lbs. x 4 wks) HOSPITAL COURSE Term gestation delivered via c/s without complications. ESTHER ABDULLAHI Jr, MD February 28, 2019 07:48
[2019-02-28] MEDS ORDERED: DOCU-109 PO (07:50)
[2019-02-28] MEDS ORDERED: OXYC1TAB15 PO (07:50)
[2019-02-28] MEDS ORDERED: IBUP-1027 PO (07:50)
--- NOTE | 2019-02-28 07:50 | DISCH ---
DISCHARGE INSTRUCTIONS Condition on Discharge Condition on Discharge: Stable Activity After Discharge Activity Instructions for Disc: Activity as tolerated Lifting Instructions after Dis: No heavy lifting Driving Instructions after Dis: No driving for 2 weeks Diet after Discharge Diet after Discharge: Regular Contacting the DRHiram after DC Call your doctor for: If your condition worsens Follow-Up Follow up with: Dr. Miller in 2 wks. ESTHER MILLER Jr, MD February 28, 2019 07:50
[2019-02-28 07:51] VITALS: BP 115/72
[2019-02-28 11:30] VITALS: BP 119/70
--- NOTE | 2019-02-28 11:32 | NUR ---
Discharge Note: Copy of NB and post discharge care instructions provided to Pt. who verbalizes understanding. Pt. denies needs or questions at this time. Pt. escorted by Jazmin Parra RN to vehicle with NB, significant other, and belongings present. Pt. discharged home. Jazmin Davis RN
--- NOTE | 2019-03-01 13:07 | PATHOLOGY ---
[facility] Accession Number: [id number] . 01 Material submitted: . placenta - PLACENTA AND CORD . 01 Clinical history: . . intolerance EDC: 02/28/2019 Apgars 8, 9 GA: 39 weeks . 02 Diagnosis: 484 gram term placenta of an estimated 39 weeks gestation with attached membranes and umbilical cord and separate detached segment of umbilical cord: - Subamniotic pigmented macrophages consistent with meconium staining. . (JPM:mml; 03/01/2019) [facility]03/01/2019 . 02 Comment: There is no evidence of an acute chorioamnionitis or villitis. There are no infarcts. . (JPM:mml; 03/01/2019) . 02 Electronically signed: . Ricky Stacy MD, Pathologist NPI- [id number] . 01 Gross description: . The specimen is received in formalin labeled "Yesika Hernandez, placenta" and consists of a circular nolasco placenta measuring 17.3 x 16.5 x 3.2 cm and weighing 484 g after removal of membranes and umbilical cord. The membranes are ramos-gutierrez, thin, translucent, and markedly slimy. The amnion and chorion are moderately . The surface is green-ramos, well vascularized, and edematous with an eccentrically inserted 3 vessel umbilical cord, 6.1 cm from edge. The cord measures 17.4 cm in length and up to 1.1 cm in diameter. Received separately is a clamped segment of umbilical cord measuring 22.0 cm in length and up to 1.5 cm in diameter. Both segments of cord are white-gutierrez with moderate twists. The maternal surface shows complete and intact cotyledons with minimal adherent blood clot and calcifications covering approximately 30% of the surface. There is an area of depression in the center of the maternal surface which is deep to the umbilical cord. Sectioning reveals a maroon-red and spongy parenchyma with no gross lesions. [employer] sections are submitted as follows: . A1: Periphery and membrane roll A2: Umbilical cord A3-A4: Full-thickness section (SDY; 02/28/2019) SYU/SYU . 02 Pathologist provided ICD-10: O77.0, Z37.0, Z3A.39 . 02 CPT . 047236 Specimen Comment: A courtesy copy of this report has been sent to Specimen Comment: [phone], . Specimen Comment: Report sent to / DR LINDO Performed at: 01 [facility] [address], [place] [id number] MD Ben Schwarz MD Phone: [phone] Performed at: 02 [facility] [address] [place], [place] [id number] MD Ricky Stacy MD Phone: [phone]
== END 2019-02-28 11:32 | disposition home or self-care (01) | DRG 787 ==
LOC: 3 SO LND 05:54
PROVIDERS: ADMIT Obstetrics & Gynecology; ATTEND Obstetrics & Gynecology
PROC: 10D00Z1 Extraction of Products of Conception, Low, Open Approach (ICD-10-PCS; principal; 2019-02-25)
DX: O77.9 Labor and delivery complicated by fetal stress, unspecified (principal); R71.0 Precipitous drop in hematocrit; O62.2 Other uterine inertia; O77.0 Labor and delivery complicated by meconium in amniotic fluid; Z37.0 Single live birth; Z3A.39 39 weeks gestation of pregnancy
CPT/HCPCS: 36415; 81001; 85025; 86592; 86850; 86900; 86901; 87086; 88307; J0171; J0696; J1200; J1885; J2001; J2270; J2405; J2590; J2795; J7120

== ENCOUNTER 2020-05-11 16:56 | Inpatient (IN) | payer BC, OTHER ==
[~2020-05-11] VITALS: Ht 167.6 cm; Wt 96.6 kg
[~2020-05-11 16:56] MED LIST changes: +DOCU-109 PO; +IBUP-1027 PO; +OXYC1TAB15 PO
[2020-05-11] MEDS ORDERED: IV NORMAL SALINE 1000ML BAG 1,000 ML IV SCH (18:09)
[2020-05-11] MEDS ORDERED: ONDANSETRON PF 4 MG/2 ML VIAL. IVP ONE (18:15)
[2020-05-11] MEDS ORDERED: KETOROLAC 15 MG/ML VIAL. IVP ONE (18:15)
[2020-05-11 18:22] LABS: BASO # 0.1 x10^3/uL (0.0-0.2); BASO % 1 % (0-3); EOS % 0 % (0-3); HEMOGLOBIN 14.2 g/dL (12.0-15.5); LYMPH # 1.7 x10^3/uL (1.0-4.8); LYMPH % 15 % (24-48); MEAN CORPUSCULAR HEMOGLOBIN 28 pg (25-35); MEAN CORPUSCULAR HGB CONC 34 g/dL (31-37); MEAN CORPUSCULAR VOLUME 83 fL (79-100); MONO # 0.5 x10^3/uL (0.0-1.1); MONO % 5 % (0-9); NEUT % 80 % (31-73); PLATELET COUNT 341 x10^3/uL (140-400); RED BLOOD COUNT 5.05 x10^6/uL (3.50-5.40); RED CELL DISTRIBUTION WIDTH 13.4 % (11.5-14.5); WHITE BLOOD COUNT 11.3 x10^3/uL (4.0-11.0)
--- NOTE | 2020-05-11 18:27 | PHYS DOC ---
Past Medical History Past Medical History: No Pertinent History, Migraines Past Surgical History: No Surgical History, Smoking Status: Never Smoker Alcohol Use: None Drug Use: None General Adult EDM: Chief Complaint: FLANK PAIN HPI: HPI: 25-year-old female presents with bilateral flank pain that began about 10 AM today patient was sudden onset. Patient's pain was 9 and 10 at the worst and is currently 4 out of 10. Pain radiates to the bilateral abdomen worse on the right side. Patient denies any radiation to the legs. No history of trauma. Patient had nausea and vomited once and feels better after vomiting. No diarrhea. No fever, cough, shortness of breath. No weakness or numbness in the legs. Denies dysuria Review of Systems: Review of Systems: Constitutional: Denies fever or chills. [] Eyes: Denies change in visual acuity. [] HENT: Denies nasal congestion or sore throat. [] Respiratory: Denies cough or shortness of breath. [] Cardiovascular: Denies chest pain or edema. [] GI: Reports mild abdominal pain which was radiating from the back, patient has nausea and vomited once. No diarrhea : Denies dysuria. [] Musculoskeletal: Patient complains of back pain but denies any other extremity pain Integument: Denies rash. [] Neurologic: Denies headache, focal weakness or sensory changes. [] Endocrine: Denies polyuria or polydipsia. [] Lymphatic: Denies swollen glands. [] Psychiatric: Denies depression or anxiety. [] Heart Score: Risk Factors: Risk Factors: DM, Current or recent (<one month) smoker, HTN, HLP, family history of CAD, obesity. Risk Scores: Score 0 - 3: 2.5% MACE over next 6 weeks - Discharge Home Score 4 - 6: 20.3% MACE over next 6 weeks - Admit for Clinical Observation Score 7 - 10: 72.7% MACE over next 6 weeks - Early Invasive Strategies Current Medications: Current Medications Medications (Trade) Dose Ordered Sig/Anay Start Time Stop Time Status Last Admin Dose Admin Ketorolac Tromethamine (Toradol 15mg Vial) 15 mg 1X ONCE 05/11/20 18:15 05/11/20 18:16 DC 05/11/20 18:23 15 MG Ondansetron HCl (Zofran) 4 mg 1X ONCE 05/11/20 18:15 05/11/20 18:16 DC 05/11/20 18:23 4 MG Sodium Chloride 1,000 ml @ 100 mls/hr Q10H 05/11/20 18:09 05/12/20 04:08 05/11/20 18:23 100 MLS/HR Allergies: Allergies: Allergies Coded Allergies Type Severity Reaction Last Updated Verified Latex, Natural Rubber Allergy Severe Hives 02/07/19 Yes Physical Exam: PE: Constitutional: Well developed, well nourished, no acute distress, non-toxic appearance. [] HENT: Normocephalic, atraumatic, bilateral external ears normal, oropharynx moist, no oral exudates, nose normal. [] Eyes: PERRLA, EOMI, conjunctiva normal, no discharge. [] Neck: Normal range of motion, no tenderness, supple, no stridor. [] Cardiovascular:Heart rate regular rhythm, peripheral pulses intact Lungs & Thorax: No respiratory distress Abdomen: Bowel sounds normal, soft, no tenderness, no masses, no pulsatile masses. [] Skin: Warm, dry, no erythema, no rash. [] Back: Bilateral flank tenderness right greater than left Extremities: No tenderness, no cyanosis, no clubbing, ROM intact, no edema. [] Neurologic: Alert and oriented X 3, normal motor function, normal sensory function, no focal deficits noted. [] Dorsiflexion to the great toes is intact bilaterally Psychologic: Affect normal, judgement normal, mood normal. [] Current Patient Data: Labs: Laboratory Tests Test 05/11/20 17:30 05/11/20 17:51 Bedside Urine HCG, Qualitative Hcg negative White Blood Count 11.3 x10^3/uL Red Blood Count 5.05 x10^6/uL Hemoglobin 14.2 g/dL Hematocrit 42.0 % Mean Corpuscular Volume 83 fL Mean Corpuscular Hemoglobin 28 pg Mean Corpuscular Hemoglobin Concent 34 g/dL Red Cell Distribution Width 13.4 % Platelet Count 341 x10^3/uL Neutrophils (%) (Auto) 80 % Lymphocytes (%) (Auto) 15 % Monocytes (%) (Auto) 5 % Eosinophils (%) (Auto) 0 % Basophils (%) (Auto) 1 % Neutrophils # (Auto) 9.0 x10^3/uL Lymphocytes # (Auto) 1.7 x10^3/uL Monocytes # (Auto) 0.5 x10^3/uL Eosinophils # (Auto) 0.0 x10^3/uL Basophils # (Auto) 0.1 x10^3/uL Sodium Level 140 mmol/L Potassium Level 4.5 mmol/L Chloride Level 101 mmol/L Carbon Dioxide Level 27 mmol/L Anion Gap 12 Blood Urea Nitrogen 11 mg/dL Creatinine 0.9 mg/dL Estimated GFR (Cockcroft-Gault) 76.3 BUN/Creatinine Ratio 12 Glucose Level 101 mg/dL Calcium Level 9.5 mg/dL Total Bilirubin 1.0 mg/dL Aspartate Amino Transf (AST/SGOT) 44 U/L Alanine Aminotransferase (ALT/SGPT) 76 U/L Alkaline Phosphatase 60 U/L Total Protein 8.8 g/dL Albumin 4.8 g/dL Albumin/Globulin Ratio 1.2 Lipase 96 U/L Current Medications Medications (Trade) Dose Ordered Sig/Anay Route PRN Reason Start Time Stop Time Status Last Admin Dose Admin Sodium Chloride 1,000 ml @ 100 mls/hr Q10H IV 05/11/20 18:09 05/12/20 04:08 05/11/20 18:23 Ondansetron HCl (Zofran) 4 mg 1X ONCE IVP 05/11/20 18:15 05/11/20 18:16 DC 05/11/20 18:23 Ketorolac Tromethamine (Toradol 15mg Vial) 15 mg 1X ONCE IVP 05/11/20 18:15 05/11/20 18:16 DC 05/11/20 18:23 Laboratory Tests Test 05/11/20 17:30 05/11/20 17:51 POC Urine HCG, Qualitative Hcg negative (Negative) White Blood Count 11.3 x10^3/uL (4.0-11.0) H Red Blood Count 5.05 x10^6/uL (3.50-5.40) Hemoglobin 14.2 g/dL (12.0-15.5) Hematocrit 42.0 % (36.0-47.0) Mean Corpuscular Volume 83 fL (79-100) Mean Corpuscular Hemoglobin 28 pg (25-35) Mean Corpuscular Hemoglobin Concent 34 g/dL (31-37) Red Cell Distribution Width 13.4 % (11.5-14.5) Platelet Count 341 x10^3/uL (140-400) Neutrophils (%) (Auto) 80 % (31-73) H Lymphocytes (%) (Auto) 15 % (24-48) L Monocytes (%) (Auto) 5 % (0-9) Eosinophils (%) (Auto) 0 % (0-3) Basophils (%) (Auto) 1 % (0-3) Neutrophils # (Auto) 9.0 x10^3/uL (1.8-7.7) H Lymphocytes # (Auto) 1.7 x10^3/uL (1.0-4.8) Monocytes # (Auto) 0.5 x10^3/uL (0.0-1.1) Eosinophils # (Auto) 0.0 x10^3/uL (0.0-0.7) Basophils # (Auto) 0.1 x10^3/uL (0.0-0.2) Laboratory Tests 05/11/20 17:51 Vital Signs: Vital Signs Date Time Temp Pulse Resp B/P (MAP) Pulse Ox O2 Delivery O2 Flow Rate FiO2 05/11/20 18:08 98.3 92 18 143/83 (103) 98 Room Air 98.3 EKG: EKG: [] Radiology/Procedures: Radiology/Procedures: [][facility] [address] [place], [place] [id number] IMAGING REPORT Signed PATIENT: KOREY SANCHEZ LACCOUNT: [id number] : 1995 LOCATION: ER AGE: 25 SEX: F EXAM STATUS: PRE ER ORD. PHYSICIAN: CLAUDINE PATEL MD REASON: flank pain PROCEDURE: CT ABDOMEN PELVIS WO CONTRAST Exam: CT of abdomen and pelvis without contrast INDICATION: Flank pain TECHNIQUE: Sequential axial images through the abdomen and pelvis obtained without IV contrast. Sagittal and coronal reformatted images were reconstructed from the axial data and reviewed. Comparisons: None FINDINGS: Heart size is normal. No pericardial effusion. Visualized lung bases are clear. No pleural effusion. Evaluation of solid organs is limited secondary to noncontrast technique. Liver, spleen, pancreas, gallbladder and adrenals are unremarkable. No perinephric inflammation or hydronephrosis. No renal or ureteral calculi are identified. Bladder is decompressed not well evaluated. Uterus is nonenlarged. No abnormal adnexal mass. There are several dilated loops of small bowel seen in the right hemiabdomen. The more distal small bowel seen in the pelvis is decompressed. Remainder of the large and small bowel are unremarkable. No free intra-abdominal air or fluid. Abdominal aorta has a normal course and caliber. No enlarged intra-abdominal lymph nodes are identified. No suspicious osseous lesions or acute fractures. IMPRESSION: Several dilated loops of small bowel in the right hemiabdomen. The more distal small bowel is decompressed. Findings are suggestive of small bowel obstruction however transition point is not definitively identified. Continued radiographic follow-up is recommended. Exposure: One or more of the following in the visualized dose reduction techniques were utilized for this examination: 1. Automated exposure control 2. Adjustment of the MA and/or KV according to patient size 3. Use of iterative of reconstructive technique Electronically signed by: Yelena Meyer MD (05/11/2020 7:07 PM) [id number] DICTATED and SIGNED BY: YELENA MEYER MD DATE: 05/11/20 1907 Course & Med Decision Making: Course & Med Decision Making :Pertinent Labs and Imaging studies reviewed. (See chart for details) []19:20; abd soft,nt. pain ct w/ sbo. will admit to hospitalist and gen surg consult 19:24: d/w dr pelaez who accepts admission 19:27 D/W DR VANEGAS, WILL CONSULT mips: hcg checked and negative Dragon Disclaimer: Chilo Disclaimer: This electronic medical record was generated, in whole or in part, using a voice recognition dictation system. Departure Departure Impression: Primary Impression: Small bowel obstruction Additional Impression: Abdominal pain Disposition: ADMITTED INPATIENT Condition: STABLE Referrals: JAMEY LINDO MD (PCP) Justicifation of Admission Dx: Justifications for Admission: Justification of Admission Dx: Yes Comments: CLAUDINE Panchal MD May 11, 2020 18:27
[2020-05-11 18:31] LABS: CALCIUM 9.5 mg/dL (8.5-10.1); CREATININE 0.9 mg/dL (0.6-1.0); GFR 76.3; POTASSIUM 4.5 mmol/L (3.5-5.1)
[2020-05-11 18:35] LABS: ALBUMIN 4.8 g/dL (3.4-5.0); ALBUMIN/GLOBULIN RATIO 1.2 (1.0-1.7); TOTAL PROTEIN 8.8 g/dL (6.4-8.2)
--- NOTE | 2020-05-11 19:10 | RAD ---
Exam: CT of abdomen and pelvis without contrast INDICATION: Flank pain TECHNIQUE: Sequential axial images through the abdomen and pelvis obtained without IV contrast. Sagittal and coronal reformatted images were reconstructed from the axial data and reviewed. Comparisons: None FINDINGS: Heart size is normal. No pericardial effusion. Visualized lung bases are clear. No pleural effusion. Evaluation of solid organs is limited secondary to noncontrast technique. Liver, spleen, pancreas, gallbladder and adrenals are unremarkable. No perinephric inflammation or hydronephrosis. No renal or ureteral calculi are identified. Bladder is decompressed not well evaluated. Uterus is nonenlarged. No abnormal adnexal mass. There are several dilated loops of small bowel seen in the right hemiabdomen. The more distal small bowel seen in the pelvis is decompressed. Remainder of the large and small bowel are unremarkable. No free intra-abdominal air or fluid. Abdominal aorta has a normal course and caliber. No enlarged intra-abdominal lymph nodes are identified. No suspicious osseous lesions or acute fractures. IMPRESSION: Several dilated loops of small bowel in the right hemiabdomen. The more distal small bowel is decompressed. Findings are suggestive of small bowel obstruction however transition point is not definitively identified. Continued radiographic follow-up is recommended. Exposure: One or more of the following in the visualized dose reduction techniques were utilized for this examination: 1. Automated exposure control 2. Adjustment of the MA and/or KV according to patient size 3. Use of iterative of reconstructive technique Electronically signed by: Yelena Sneed MD (05/11/2020 7:07 PM) [id number]
[2020-05-11 19:14] LABS: BILIRUBIN,URINE NEGATIVE (NEG); CLARITY,URINE CLEAR; COLOR,URINE AMBER; NITRITE,URINE NEGATIVE (NEG); PH,URINE 8.5 (<5.0-8.0); PROTEIN,URINE 100 mg/dL (NEG-TRACE)
[2020-05-11 19:25] LABS: BACTERIA,URINE FEW /HPF (0-FEW); SQUAMOUS EPITHELIAL CELL,UR FEW /LPF
[2020-05-11] MEDS ORDERED: ONDANSETRON PF 4 MG/2 ML VIAL. IV PRN (19:30)
--- NOTE | 2020-05-11 21:00 | NUR ---
Patient admitted to room 412. Patient alert and oriented x 4. Patient oriented to room, bed, call light and POC. Patient call light in reach. Se4e admission assessment/documentation. Will monitor.
[2020-05-11] MEDS: IV NORMAL SALINE 1000ML BAG 1,000 ML IV SCH (22:18)
--- NOTE | 2020-05-11 22:27 | NUR ---
Call to Dr. Hernández regarding pain medication. Call returned see order.
[2020-05-11 23:00] VITALS: BP 145/65
[2020-05-11] MEDS: KETOROLAC 15 MG/ML VIAL. IVP PRN (23:00)
[2020-05-12] MEDS ORDERED: VENL150C PO (02:05)
[2020-05-12 03:00] VITALS: BP 108/64
[2020-05-12] MEDS: IV NORMAL SALINE 1000ML BAG 1,000 ML IV SCH ×2 (06:50→14:34)
[2020-05-12] MEDS: KETOROLAC 15 MG/ML VIAL. IVP PRN (06:56)
[2020-05-12 07:00] VITALS: BP 112/59
--- NOTE | 2020-05-12 07:36 | NUR ---
Consult for Dr. Rios regarding consult called to service at [phone]. Message left with Bre who stated she would call consult to Dr. Rios.
--- NOTE | 2020-05-12 10:41 | PDOC2 ---
CONSULT Date of Consult Date of Consult DATE: 05/12/20 TIME: 10:36 History of Present Illness Reason for Visit: The patient is a 25 year old female who reported to the ER yesterday with primary complaints of back pain. The pain began yesterday morning and persisted throughout the day. In the afternoon there was some radiation of the pain to the flanks. She reports one episode of emesis in the evening and none since then. She has been passing gas and had a normal stool yesterday. She denies significant abdominal pain. Past Medical History Past Medical History migraines Past Surgical History Past Surgical History: Social History No ALCOHOL: none Current Problem List Problem List Problems Medical Problems: (1) Abdominal pain Status: Acute (2) Small bowel obstruction Status: Acute Current Medications Current Medications Current Medications Sodium Chloride 1,000 ml @ 100 mls/hr Q10H IV Last administered on 05/11/20at 18:23; Start 05/11/20 at 18:09; Stop 05/12/20 at 04:08; Status DC Ondansetron HCl (Zofran) 4 mg 1X ONCE IVP Last administered on 05/11/20at 18:23; Start 05/11/20 at 18:15; Stop 05/11/20 at 18:16; Status DC Ketorolac Tromethamine (Toradol 15mg Vial) 15 mg 1X ONCE IVP Last administered on 05/11/20at 18:23; Start 05/11/20 at 18:15; Stop 05/11/20 at 18:16; Status DC Ondansetron HCl (Zofran) 4 mg PRN Q8HRS PRN IV NAUSEA/VOMITING; Start 05/11/20 at 19:30; Stop 05/12/20 at 19:29 Sodium Chloride 1,000 ml @ 125 mls/hr Q8H IV Last administered on 05/12/20at 06:50; Start 05/11/20 at 19:24; Stop 05/12/20 at 19:23 Ketorolac Tromethamine (Toradol 15mg Vial) 15 mg PRN Q6HRS PRN IVP MODERATE PAIN 4-6 Last administered on 05/12/20at 06:56; Start 05/11/20 at 22:45; Stop 05/16/20 at 22:44 Active Scripts Active Reported Effexor Xr (Venlafaxine Hcl) 150 Mg Cap.er.24h 0.5 Cap PO DAILY Allergies Allergies: Coded Allergies: Latex, Natural Rubber (Verified Allergy, Severe, Hives, 02/07/19) ROS General: No: Chills, Night Sweats, Fatigue, Malaise, Appetite, Other PSYCHOLOGICAL ROS: No: Anxiety, Behavioral Disorder, Concentration difficultie, Decreased libido, Depression, Disorientation, Hallucinations, Hostility, Irritablity, Memory difficulties, Mood Swings, Obsessive thoughts, Physical abuse, Sexual abuse, Sleep disturbances, Suicidal ideation, Other Eyes: No Blurry vision, No Decreased vision, No Double vision, No Dry eyes, No Excessive tearing, No Eye Pain, No Itchy Eyes, No Loss of vision, No Photophobia, No Scotomata, No Uses contacts, No Uses glasses, No Other HEENT: No: Heacaches, Visual Changes, Hearing change, Nasal congestion, Nasal discharge, Oral lesions, Sinus pain, Sore Throat, Epistaxis, Sneezing, Snoring, Tinnitus, Vertigo, Vocal changes, Other ALLERGY AND IMMUNOLOGY: No: Hives, Insect Bite Sensitivity, Itchy/Watery Eyes, Nasal Congestion, Post Nasal Drip, Seasonal Allergies, Other Hematological and Lymphatic: No: Bleeding Problems, Blood Clots, Blood Transfusions, Brusing, Night Sweats, Pallor, Swollen Lymph Nodes, Other ENDOCRINE: No: Breast Changes, Galactorrhea, Hair Pattern Changes, Hot Flashes, Malaise/lethargy, Mood Swings, Palpitations, Polydipsia/polyuria, Skin Changes, Temperature Intolerance, Unexpected Weight Changes, Other Breast: No New/Changing Breast Lumps, No Nipple changes, No Nipple discharge, No Other Respiratory: No: Cough, Hemoptysis, Orthopnea, Pleuritic Pain, Shortness of breath, SOB with excertion, Sputum Changes, Stridor, Tachypnea, Wheezing, Other Cardiovascular: No Chest Pain, No Palpitations, No Orthopnea, No Paroxysmal Noc. Dyspnea, No Edema, No Lt Headedness, No Other Gastrointestinal: Yes Vomiting Musculoskeletal: Yes Pain In: (back) Neurological: No Behavorial Changes, No Bowel/Bladder ControlChng, No Confusion, No Dizziness, No Gait Disturbance, No Headaches, No Impaired Coord/balance, No Memory Loss, No Numbness/Tingling, No Seizures, No Speech Problems, No Tremors, No Visual Changes, No Weakness, No Other Skin: No Dry Skin, No Eczema, No Hair Changes, No Lumps, No Mole Changes, No Mottling, No Nail Changes, No Pruritus, No Rash, No Skin Lesion Changes, No Other, No Acne Physical Exam General: Alert, Oriented X3, Cooperative HEENT: Atraumatic Lungs: Clear to auscultation Heart: Regular rate Abdomen: Soft, No tenderness Extremities: No clubbing, No cyanosis Skin: No rashes Neuro: Normal speech Psych/Mental Status: Mental status NL Vitals VITALS Vital Signs Date Time Temp Pulse Resp B/P (MAP) Pulse Ox O2 Delivery O2 Flow Rate FiO2 05/12/20 07:00 97.6 69 18 112/59 (76) 98 97.6 05/12/20 03:00 Room Air Labs Labs Laboratory Tests Test 05/11/20 17:30 05/11/20 17:51 05/11/20 19:00 Bedside Urine HCG, Qualitative Hcg negative (Negative) White Blood Count 11.3 x10^3/uL (4.0-11.0) Red Blood Count 5.05 x10^6/uL (3.50-5.40) Hemoglobin 14.2 g/dL (12.0-15.5) Hematocrit 42.0 % (36.0-47.0) Mean Corpuscular Volume 83 fL (79-100) Mean Corpuscular Hemoglobin 28 pg (25-35) Mean Corpuscular Hemoglobin Concent 34 g/dL (31-37) Red Cell Distribution Width 13.4 % (11.5-14.5) Platelet Count 341 x10^3/uL (140-400) Neutrophils (%) (Auto) 80 % (31-73) Lymphocytes (%) (Auto) 15 % (24-48) Monocytes (%) (Auto) 5 % (0-9) Eosinophils (%) (Auto) 0 % (0-3) Basophils (%) (Auto) 1 % (0-3) Neutrophils # (Auto) 9.0 x10^3/uL (1.8-7.7) Lymphocytes # (Auto) 1.7 x10^3/uL (1.0-4.8) Monocytes # (Auto) 0.5 x10^3/uL (0.0-1.1) Eosinophils # (Auto) 0.0 x10^3/uL (0.0-0.7) Basophils # (Auto) 0.1 x10^3/uL (0.0-0.2) Sodium Level 140 mmol/L (136-145) Potassium Level 4.5 mmol/L (3.5-5.1) Chloride Level 101 mmol/L (98-107) Carbon Dioxide Level 27 mmol/L (21-32) Anion Gap 12 (6-14) Blood Urea Nitrogen 11 mg/dL (7-20) Creatinine 0.9 mg/dL (0.6-1.0) Estimated GFR (Cockcroft-Gault) 76.3 BUN/Creatinine Ratio 12 (6-20) Glucose Level 101 mg/dL (70-99) Calcium Level 9.5 mg/dL (8.5-10.1) Total Bilirubin 1.0 mg/dL (0.2-1.0) Aspartate Amino Transf (AST/SGOT) 44 U/L (15-37) Alanine Aminotransferase (ALT/SGPT) 76 U/L (14-59) Alkaline Phosphatase 60 U/L (46-116) Total Protein 8.8 g/dL (6.4-8.2) Albumin 4.8 g/dL (3.4-5.0) Albumin/Globulin Ratio 1.2 (1.0-1.7) Lipase 96 U/L (73-393) Urine Collection Type Unknown Urine Color Bella Urine Clarity Clear Urine pH 8.5 (<5.0-8.0) Urine Specific [place] >=1.030 (1.000-1.030) Urine Protein 100 mg/dL (NEG-TRACE) Urine Glucose (UA) Negative mg/dL (NEG) Urine Ketones (Stick) Trace mg/dL (NEG) Urine Blood Negative (NEG) Urine Nitrite Negative (NEG) Urine Bilirubin Negative (NEG) Urine Urobilinogen Dipstick 1.0 mg/dL (0.2 mg/dL) Urine Leukocyte Esterase Trace (NEG) Urine RBC 1-2 /HPF (0-2) Urine WBC 1-4 /HPF (0-4) Urine Squamous Epithelial Cells Few /LPF Urine Bacteria Few /HPF (0-FEW) Urine Mucus Mod /LPF Laboratory Tests Test 05/11/20 17:30 05/11/20 17:51 05/11/20 19:00 Bedside Urine HCG, Qualitative Hcg negative (Negative) White Blood Count 11.3 x10^3/uL (4.0-11.0) Red Blood Count 5.05 x10^6/uL (3.50-5.40) Hemoglobin 14.2 g/dL (12.0-15.5) Hematocrit 42.0 % (36.0-47.0) Mean Corpuscular Volume 83 fL (79-100) Mean Corpuscular Hemoglobin 28 pg (25-35) Mean Corpuscular Hemoglobin Concent 34 g/dL (31-37) Red Cell Distribution Width 13.4 % (11.5-14.5) Platelet Count 341 x10^3/uL (140-400) Neutrophils (%) (Auto) 80 % (31-73) Lymphocytes (%) (Auto) 15 % (24-48) Monocytes (%) (Auto) 5 % (0-9) Eosinophils (%) (Auto) 0 % (0-3) Basophils (%) (Auto) 1 % (0-3) Neutrophils # (Auto) 9.0 x10^3/uL (1.8-7.7) Lymphocytes # (Auto) 1.7 x10^3/uL (1.0-4.8) Monocytes # (Auto) 0.5 x10^3/uL (0.0-1.1) Eosinophils # (Auto) 0.0 x10^3/uL (0.0-0.7) Basophils # (Auto) 0.1 x10^3/uL (0.0-0.2) Sodium Level 140 mmol/L (136-145) Potassium Level 4.5 mmol/L (3.5-5.1) Chloride Level 101 mmol/L (98-107) Carbon Dioxide Level 27 mmol/L (21-32) Anion Gap 12 (6-14) Blood Urea Nitrogen 11 mg/dL (7-20) Creatinine 0.9 mg/dL (0.6-1.0) Estimated GFR (Cockcroft-Gault) 76.3 BUN/Creatinine Ratio 12 (6-20) Glucose Level 101 mg/dL (70-99) Calcium Level 9.5 mg/dL (8.5-10.1) Total Bilirubin 1.0 mg/dL (0.2-1.0) Aspartate Amino Transf (AST/SGOT) 44 U/L (15-37) Alanine Aminotransferase (ALT/SGPT) 76 U/L (14-59) Alkaline Phosphatase 60 U/L (46-116) Total Protein 8.8 g/dL (6.4-8.2) Albumin 4.8 g/dL (3.4-5.0) Albumin/Globulin Ratio 1.2 (1.0-1.7) Lipase 96 U/L (73-393) Urine Collection Type Unknown Urine Color Bella Urine Clarity Clear Urine pH 8.5 (<5.0-8.0) Urine Specific [place] >=1.030 (1.000-1.030) Urine Protein 100 mg/dL (NEG-TRACE) Urine Glucose (UA) Negative mg/dL (NEG) Urine Ketones (Stick) Trace mg/dL (NEG) Urine Blood Negative (NEG) Urine Nitrite Negative (NEG) Urine Bilirubin Negative (NEG) Urine Urobilinogen Dipstick 1.0 mg/dL (0.2 mg/dL) Urine Leukocyte Esterase Trace (NEG) Urine RBC 1-2 /HPF (0-2) Urine WBC 1-4 /HPF (0-4) Urine Squamous Epithelial Cells Few /LPF Urine Bacteria Few /HPF (0-FEW) Urine Mucus Mod /LPF Images Images CT abdomen/pelvis: IMPRESSION: Several dilated loops of small bowel in the right hemiabdomen. The more distal small bowel is decompressed. Findings are suggestive of small bowel obstruction however transition point is not definitively identified. Continued radiographic follow-up is recommended. Assessment/Plan Assessment/Plan Back pain, radiated to flanks; no abdominal pain and benign exam; CT reviewed, notes some dilated SB loops; clinically mechanical bowel obstruction is unlikely given exam and presentation; will try CLAUDINE Powell MD May 12, 2020 10:41
[2020-05-12 11:00] VITALS: BP 125/74
--- NOTE | 2020-05-12 11:33 | PDOC1 ---
History and Physical Date of Admission Date of Admission DATE: 05/12/20 TIME: 11:31 Identification/Chief Complaint Chief Complaint SEEN IN ER WITH SBO, 25-year-old female presents with bilateral flank pain that began about 10 AM 05/11 patient was sudden onset. Patient's pain was 9 and 10 at the worst and is currently 4 out of 10. Pain radiates to the bilateral abdomen worse on the right side. Patient denies any radiation to the legs. No history of trauma. Patient had nausea and vomited once and feels better after vomiting. No diarrhea. No fever, cough, shortness of breath. No weakness or numbness in the legs. Denies dysuria, ADMITTED, NPO, SURGERY CONSULTED Past Medical History Past Medical History Past Medical History Past Medical History Past Medical History: No Pertinent History, Migraines Past Surgical History: No Surgical History, Smoking Status: Never Smoker Alcohol Use: None Drug Use: None fhx OBESITY Past Surgical History Past Surgical History: Family History Family History: High Cholestrol, Hypertension Social History Smoke: No ALCOHOL: none Drugs: None Current Problem List Problem List Problems Medical Problems: (1) Abdominal pain Status: Acute (2) Small bowel obstruction Status: Acute Current Medications Current Medications Current Medications Sodium Chloride 1,000 ml @ 100 mls/hr Q10H IV Last administered on 05/11/20at 18:23; Start 05/11/20 at 18:09; Stop 05/12/20 at 04:08; Status DC Ondansetron HCl (Zofran) 4 mg 1X ONCE IVP Last administered on 05/11/20at 18:23; Start 05/11/20 at 18:15; Stop 05/11/20 at 18:16; Status DC Ketorolac Tromethamine (Toradol 15mg Vial) 15 mg 1X ONCE IVP Last administered on 05/11/20at 18:23; Start 05/11/20 at 18:15; Stop 05/11/20 at 18:16; Status DC Ondansetron HCl (Zofran) 4 mg PRN Q8HRS PRN IV NAUSEA/VOMITING; Start 05/11/20 at 19:30; Stop 05/12/20 at 19:29 Sodium Chloride 1,000 ml @ 125 mls/hr Q8H IV Last administered on 05/12/20at 06:50; Start 05/11/20 at 19:24; Stop 05/12/20 at 19:23 Ketorolac Tromethamine (Toradol 15mg Vial) 15 mg PRN Q6HRS PRN IVP MODERATE PAIN 4-6 Last administered on 05/12/20at 06:56; Start 05/11/20 at 22:45; Stop 05/16/20 at 22:44 Active Scripts Active Reported Effexor Xr (Venlafaxine Hcl) 150 Mg Cap.er.24h 0.5 Cap PO DAILY Allergies Allergies: Coded Allergies: Latex, Natural Rubber (Verified Allergy, Severe, Hives, 02/07/19) ROS Review of System Review of Systems: Review of Systems: Constitutional: Denies fever or chills. [] Eyes: Denies change in visual acuity. [] HENT: Denies nasal congestion or sore throat. [] Respiratory: Denies cough or shortness of breath. [] Cardiovascular: Denies chest pain or edema. [] GI: Reports mild abdominal pain which was radiating from the back, patient has nausea and vomited once. No diarrhea : Denies dysuria. [] Musculoskeletal: Patient complains of back pain but denies any other extremity pain Integument: Denies rash. [] Neurologic: Denies headache, focal weakness or sensory changes. [] Endocrine: Denies polyuria or polydipsia. [] Lymphatic: Denies swollen glands. [] Psychiatric: Denies depression or anxiety. [] 14 PT ROS OTHERWISE NEG Physical Exam Physical Exam Constitutional: Well developed, well nourished, no acute distress, non-toxic appearance. [] HENT: Normocephalic, atraumatic, bilateral external ears normal, oropharynx moist, no oral exudates, nose normal. [] Eyes: PERRLA, EOMI, conjunctiva normal, no discharge. [] Neck: Normal range of motion, no tenderness, supple, no stridor. [] Cardiovascular:Heart rate regular rhythm, peripheral pulses intact Lungs & Thorax: No respiratory distress Abdomen: Bowel sounds normal, soft, no tenderness, no masses, no pulsatile masses. [] Skin: Warm, dry, no erythema, no rash. [] Back: Bilateral flank tenderness right greater than left Extremities: No tenderness, no cyanosis, no clubbing, ROM intact, no edema. [] Neurologic: Alert and oriented X 3, normal motor function, normal sensory function, no focal deficits noted. [] Dorsiflexion to the great toes is intact bilaterally Psychologic: Affect normal, judgment normal, mood normal. [] General: Alert, Oriented X3, Cooperative, No acute distress HEENT: EOMI, Mucous membr. moist/pink Lungs: Clear to auscultation, Normal air movement Heart: RRR Breasts: Not examined Rectal Exam: not examined PELVIC: Examination not indicated Extremities: No cyanosis Neuro: Normal speech, Strength at 5/5 X4 ext, Cranial nerves 3-12 NL Psych/Mental Status: Mental status NL, Mood NL Vitals Vitals Vital Signs Date Time Temp Pulse Resp B/P (MAP) Pulse Ox O2 Delivery O2 Flow Rate FiO2 05/12/20 07:00 97.6 69 18 112/59 (76) 98 97.6 05/12/20 03:00 Room Air Labs Labs Laboratory Tests Test 05/11/20 17:30 05/11/20 17:51 05/11/20 19:00 Bedside Urine HCG, Qualitative Hcg negative (Negative) White Blood Count 11.3 x10^3/uL (4.0-11.0) Red Blood Count 5.05 x10^6/uL (3.50-5.40) Hemoglobin 14.2 g/dL (12.0-15.5) Hematocrit 42.0 % (36.0-47.0) Mean Corpuscular Volume 83 fL (79-100) Mean Corpuscular Hemoglobin 28 pg (25-35) Mean Corpuscular Hemoglobin Concent 34 g/dL (31-37) Red Cell Distribution Width 13.4 % (11.5-14.5) Platelet Count 341 x10^3/uL (140-400) Neutrophils (%) (Auto) 80 % (31-73) Lymphocytes (%) (Auto) 15 % (24-48) Monocytes (%) (Auto) 5 % (0-9) Eosinophils (%) (Auto) 0 % (0-3) Basophils (%) (Auto) 1 % (0-3) Neutrophils # (Auto) 9.0 x10^3/uL (1.8-7.7) Lymphocytes # (Auto) 1.7 x10^3/uL (1.0-4.8) Monocytes # (Auto) 0.5 x10^3/uL (0.0-1.1) Eosinophils # (Auto) 0.0 x10^3/uL (0.0-0.7) Basophils # (Auto) 0.1 x10^3/uL (0.0-0.2) Sodium Level 140 mmol/L (136-145) Potassium Level 4.5 mmol/L (3.5-5.1) Chloride Level 101 mmol/L (98-107) Carbon Dioxide Level 27 mmol/L (21-32) Anion Gap 12 (6-14) Blood Urea Nitrogen 11 mg/dL (7-20) Creatinine 0.9 mg/dL (0.6-1.0) Estimated GFR (Cockcroft-Gault) 76.3 BUN/Creatinine Ratio 12 (6-20) Glucose Level 101 mg/dL (70-99) Calcium Level 9.5 mg/dL (8.5-10.1) Total Bilirubin 1.0 mg/dL (0.2-1.0) Aspartate Amino Transf (AST/SGOT) 44 U/L (15-37) Alanine Aminotransferase (ALT/SGPT) 76 U/L (14-59) Alkaline Phosphatase 60 U/L (46-116) Total Protein 8.8 g/dL (6.4-8.2) Albumin 4.8 g/dL (3.4-5.0) Albumin/Globulin Ratio 1.2 (1.0-1.7) Lipase 96 U/L (73-393) Urine Collection Type Unknown Urine Color Bella Urine Clarity Clear Urine pH 8.5 (<5.0-8.0) Urine Specific [place] >=1.030 (1.000-1.030) Urine Protein 100 mg/dL (NEG-TRACE) Urine Glucose (UA) Negative mg/dL (NEG) Urine Ketones (Stick) Trace mg/dL (NEG) Urine Blood Negative (NEG) Urine Nitrite Negative (NEG) Urine Bilirubin Negative (NEG) Urine Urobilinogen Dipstick 1.0 mg/dL (0.2 mg/dL) Urine Leukocyte Esterase Trace (NEG) Urine RBC 1-2 /HPF (0-2) Urine WBC 1-4 /HPF (0-4) Urine Squamous Epithelial Cells Few /LPF Urine Bacteria Few /HPF (0-FEW) Urine Mucus Mod /LPF Laboratory Tests Test 05/11/20 17:30 05/11/20 17:51 05/11/20 19:00 Bedside Urine HCG, Qualitative Hcg negative (Negative) White Blood Count 11.3 x10^3/uL (4.0-11.0) Red Blood Count 5.05 x10^6/uL (3.50-5.40) Hemoglobin 14.2 g/dL (12.0-15.5) Hematocrit 42.0 % (36.0-47.0) Mean Corpuscular Volume 83 fL (79-100) Mean Corpuscular Hemoglobin 28 pg (25-35) Mean Corpuscular Hemoglobin Concent 34 g/dL (31-37) Red Cell Distribution Width 13.4 % (11.5-14.5) Platelet Count 341 x10^3/uL (140-400) Neutrophils (%) (Auto) 80 % (31-73) Lymphocytes (%) (Auto) 15 % (24-48) Monocytes (%) (Auto) 5 % (0-9) Eosinophils (%) (Auto) 0 % (0-3) Basophils (%) (Auto) 1 % (0-3) Neutrophils # (Auto) 9.0 x10^3/uL (1.8-7.7) Lymphocytes # (Auto) 1.7 x10^3/uL (1.0-4.8) Monocytes # (Auto) 0.5 x10^3/uL (0.0-1.1) Eosinophils # (Auto) 0.0 x10^3/uL (0.0-0.7) Basophils # (Auto) 0.1 x10^3/uL (0.0-0.2) Sodium Level 140 mmol/L (136-145) Potassium Level 4.5 mmol/L (3.5-5.1) Chloride Level 101 mmol/L (98-107) Carbon Dioxide Level 27 mmol/L (21-32) Anion Gap 12 (6-14) Blood Urea Nitrogen 11 mg/dL (7-20) Creatinine 0.9 mg/dL (0.6-1.0) Estimated GFR (Cockcroft-Gault) 76.3 BUN/Creatinine Ratio 12 (6-20) Glucose Level 101 mg/dL (70-99) Calcium Level 9.5 mg/dL (8.5-10.1) Total Bilirubin 1.0 mg/dL (0.2-1.0) Aspartate Amino Transf (AST/SGOT) 44 U/L (15-37) Alanine Aminotransferase (ALT/SGPT) 76 U/L (14-59) Alkaline Phosphatase 60 U/L (46-116) Total Protein 8.8 g/dL (6.4-8.2) Albumin 4.8 g/dL (3.4-5.0) Albumin/Globulin Ratio 1.2 (1.0-1.7) Lipase 96 U/L (73-393) Urine Collection Type Unknown Urine Color Bella Urine Clarity Clear Urine pH 8.5 (<5.0-8.0) Urine Specific [place] >=1.030 (1.000-1.030) Urine Protein 100 mg/dL (NEG-TRACE) Urine Glucose (UA) Negative mg/dL (NEG) Urine Ketones (Stick) Trace mg/dL (NEG) Urine Blood Negative (NEG) Urine Nitrite Negative (NEG) Urine Bilirubin Negative (NEG) Urine Urobilinogen Dipstick 1.0 mg/dL (0.2 mg/dL) Urine Leukocyte Esterase Trace (NEG) Urine RBC 1-2 /HPF (0-2) Urine WBC 1-4 /HPF (0-4) Urine Squamous Epithelial Cells Few /LPF Urine Bacteria Few /HPF (0-FEW) Urine Mucus Mod /LPF Images Images Exam: CT of abdomen and pelvis without contrast INDICATION: Flank pain TECHNIQUE: Sequential axial images through the abdomen and pelvis obtained without IV contrast. Sagittal and coronal reformatted images were reconstructed from the axial data and reviewed. Comparisons: None FINDINGS: Heart size is normal. No pericardial effusion. Visualized lung bases are clear. No pleural effusion. Evaluation of solid organs is limited secondary to noncontrast technique. Liver, spleen, pancreas, gallbladder and adrenals are unremarkable. No perinephric inflammation or hydronephrosis. No renal or ureteral calculi are identified. Bladder is decompressed not well evaluated. Uterus is nonenlarged. No abnormal adnexal mass. There are several dilated loops of small bowel seen in the right hemiabdomen. The more distal small bowel seen in the pelvis is decompressed. Remainder of the large and small bowel are unremarkable. No free intra-abdominal air or fluid. Abdominal aorta has a normal course and caliber. No enlarged intra-abdominal lymph nodes are identified. No suspicious osseous lesions or acute fractures. IMPRESSION: Several dilated loops of small bowel in the right hemiabdomen. The more distal small bowel is decompressed. Findings are suggestive of small bowel obstruction however transition point is not definitively identified. Continued radiographic follow-up is recommended. Exposure: One or more of the following in the visualized dose reduction techniques were utilized for this examination: 1. Automated exposure control 2. Adjustment of the MA and/or KV according to patient size 3. Use of iterative of reconstructive technique Electronically signed by: Ruth Meyer MD (05/11/2020 7:07 PM) [id number] DICTATED and SIGNED BY: RUTH MEYER MD DATE: 05/11/20 1907 VTE Prophylaxis Ordered VTE Prophylaxis Devices: No VTE Pharmacological Prophylaxi: Yes Assessment/Plan Assessment/Plan IMPRESSION: Acute small bowel obstruction Several dilated loops of small bowel in the right hemiabdomen. The more distal small bowel is decompressed. Findings are suggestive of small bowel obstruction however transition point is not definitively identified. Continued radiographic follow-up is recommended. morbid obesity remote c/section plan ADMIT CONSULT Gen surgery NPO DVT PROPHYLAXIS gi consult iv fluid support D/W RN Justicifation of Admission Dx: Justifications for Admission: Justification of Admission Dx: Yes JOSE GROSSMAN MD May 12, 2020 11:33
[2020-05-12] MEDS ORDERED: ALBUTEROL SULFATE 2.5 MG/3 ML NEBU. NEB PRN (11:45)
[2020-05-12] MEDS ORDERED: ONDANSETRON PF 4 MG/2 ML VIAL. IV PRN (11:45)
[2020-05-12] MEDS ORDERED: guaiFENesin ORAL 200 MG/10 ML LIQUID. PO PRN (11:45)
[2020-05-12] MEDS ORDERED: 0.9 % SODIUM CHLORIDE 10 ML DISP.SYRIN. IV PRN (11:45)
[2020-05-12] MEDS ORDERED: LORazepam 0.5 MG TABLET PO PRN (11:45)
[2020-05-12] MEDS ORDERED: DOCUSATE SODIUM 100 MG CAPSULE. PO PRN (11:45)
[2020-05-12] MEDS ORDERED: ACETAMINOPHEN 650 MG SUPP.RECT. PR PRN (11:45)
[2020-05-12] MEDS: ENOXAPARIN 40 MG/0.4 ML SYRINGE. SQ SCH (12:00)
--- NOTE | 2020-05-12 13:58 | PDOC2 ---
CONSULT Date of Consult Date of Consult DATE: 05/12/20 TIME: 13:57 Reason for Consult Reason for Consult: N/V Past Surgical History Past Surgical History: Family History Family History: High Cholestrol, Hypertension Social History No ALCOHOL: none Drugs: None Current Problem List Problem List Problems Medical Problems: (1) Abdominal pain Status: Acute (2) Small bowel obstruction Status: Acute Current Medications Current Medications Current Medications Sodium Chloride 1,000 ml @ 100 mls/hr Q10H IV Last administered on 05/11/20at 18:23; Start 05/11/20 at 18:09; Stop 05/12/20 at 04:08; Status DC Ondansetron HCl (Zofran) 4 mg 1X ONCE IVP Last administered on 05/11/20at 18:23; Start 05/11/20 at 18:15; Stop 05/11/20 at 18:16; Status DC Ketorolac Tromethamine (Toradol 15mg Vial) 15 mg 1X ONCE IVP Last administered on 05/11/20at 18:23; Start 05/11/20 at 18:15; Stop 05/11/20 at 18:16; Status DC Ondansetron HCl (Zofran) 4 mg PRN Q8HRS PRN IV NAUSEA/VOMITING; Start 05/11/20 at 19:30; Stop 05/12/20 at 19:29 Sodium Chloride 1,000 ml @ 125 mls/hr Q8H IV Last administered on 05/12/20at 06:50; Start 05/11/20 at 19:24; Stop 05/12/20 at 19:23 Ketorolac Tromethamine (Toradol 15mg Vial) 15 mg PRN Q6HRS PRN IVP MODERATE PAIN 4-6 Last administered on 05/12/20at 06:56; Start 05/11/20 at 22:45; Stop 05/16/20 at 22:44 Sodium Chloride (Normal Saline Flush) 3 ml QSHIFT PRN IV AFTER MEDS AND BLOOD DRAWS; Start 05/12/20 at 11:45 Sodium Chloride 1,000 ml @ 100 mls/hr Q10H IV ; Start 05/12/20 at 11:37 Ondansetron HCl (Zofran) 4 mg PRN Q4HRS PRN IV NAUSEA/VOMITING; Start 05/12/20 at 11:45 Acetaminophen (Tylenol Supp) 650 mg PRN Q4HRS PRN [place] TEMP OVER 100.4F OR MILD PAIN; Start 05/12/20 at 11:45 Docusate Sodium (Colace) 100 mg PRN BID PRN PO HARD STOOLS; Start 05/12/20 at 11:45 Albuterol Sulfate (Ventolin Neb Soln) 2.5 mg PRN Q4HRS PRN NEB SHORTNESS OF BREATH; Start 05/12/20 at 11:45 Guaifenesin (Robitussin) 200 mg PRN Q4HRS PRN PO COUGH; Start 05/12/20 at 11:45 Lorazepam (Ativan) 0.5 mg PRN Q4HRS PRN PO ANXIETY / AGITATION; Start 05/12/20 at 11:45 Lorazepam (Ativan Inj) 2 mg PRN Q4HRS PRN IV ANXIETY / AGITATION; Start 05/12/20 at 11:45 Enoxaparin Sodium (Lovenox 40mg Syringe) 40 mg Q24H SQ ; Start 05/12/20 at 12:00 Pantoprazole Sodium (PROTONIX VIAL for IV PUSH) 40 mg DAILYAC IVP ; Start 05/12/20 at 12:00 Active Scripts Active Reported Effexor Xr (Venlafaxine Hcl) 150 Mg Cap.er.24h 0.5 Cap PO DAILY Allergies Allergies: Coded Allergies: Latex, Natural Rubber (Verified Allergy, Severe, Hives, 02/07/19) Vitals VITALS Vital Signs Date Time Temp Pulse Resp B/P (MAP) Pulse Ox O2 Delivery O2 Flow Rate FiO2 05/12/20 11:00 97.6 85 18 125/74 (91) 99 97.6 05/12/20 07:45 Room Air Labs Labs Laboratory Tests Test 05/11/20 17:30 05/11/20 17:51 05/11/20 19:00 Bedside Urine HCG, Qualitative Hcg negative (Negative) White Blood Count 11.3 x10^3/uL (4.0-11.0) Red Blood Count 5.05 x10^6/uL (3.50-5.40) Hemoglobin 14.2 g/dL (12.0-15.5) Hematocrit 42.0 % (36.0-47.0) Mean Corpuscular Volume 83 fL (79-100) Mean Corpuscular Hemoglobin 28 pg (25-35) Mean Corpuscular Hemoglobin Concent 34 g/dL (31-37) Red Cell Distribution Width 13.4 % (11.5-14.5) Platelet Count 341 x10^3/uL (140-400) Neutrophils (%) (Auto) 80 % (31-73) Lymphocytes (%) (Auto) 15 % (24-48) Monocytes (%) (Auto) 5 % (0-9) Eosinophils (%) (Auto) 0 % (0-3) Basophils (%) (Auto) 1 % (0-3) Neutrophils # (Auto) 9.0 x10^3/uL (1.8-7.7) Lymphocytes # (Auto) 1.7 x10^3/uL (1.0-4.8) Monocytes # (Auto) 0.5 x10^3/uL (0.0-1.1) Eosinophils # (Auto) 0.0 x10^3/uL (0.0-0.7) Basophils # (Auto) 0.1 x10^3/uL (0.0-0.2) Sodium Level 140 mmol/L (136-145) Potassium Level 4.5 mmol/L (3.5-5.1) Chloride Level 101 mmol/L (98-107) Carbon Dioxide Level 27 mmol/L (21-32) Anion Gap 12 (6-14) Blood Urea Nitrogen 11 mg/dL (7-20) Creatinine 0.9 mg/dL (0.6-1.0) Estimated GFR (Cockcroft-Gault) 76.3 BUN/Creatinine Ratio 12 (6-20) Glucose Level 101 mg/dL (70-99) Calcium Level 9.5 mg/dL (8.5-10.1) Total Bilirubin 1.0 mg/dL (0.2-1.0) Aspartate Amino Transf (AST/SGOT) 44 U/L (15-37) Alanine Aminotransferase (ALT/SGPT) 76 U/L (14-59) Alkaline Phosphatase 60 U/L (46-116) Total Protein 8.8 g/dL (6.4-8.2) Albumin 4.8 g/dL (3.4-5.0) Albumin/Globulin Ratio 1.2 (1.0-1.7) Lipase 96 U/L (73-393) Urine Collection Type Unknown Urine Color Bella Urine Clarity Clear Urine pH 8.5 (<5.0-8.0) Urine Specific [place] >=1.030 (1.000-1.030) Urine Protein 100 mg/dL (NEG-TRACE) Urine Glucose (UA) Negative mg/dL (NEG) Urine Ketones (Stick) Trace mg/dL (NEG) Urine Blood Negative (NEG) Urine Nitrite Negative (NEG) Urine Bilirubin Negative (NEG) Urine Urobilinogen Dipstick 1.0 mg/dL (0.2 mg/dL) Urine Leukocyte Esterase Trace (NEG) Urine RBC 1-2 /HPF (0-2) Urine WBC 1-4 /HPF (0-4) Urine Squamous Epithelial Cells Few /LPF Urine Bacteria Few /HPF (0-FEW) Urine Mucus Mod /LPF Laboratory Tests Test 05/11/20 17:30 05/11/20 17:51 05/11/20 19:00 Bedside Urine HCG, Qualitative Hcg negative (Negative) White Blood Count 11.3 x10^3/uL (4.0-11.0) Red Blood Count 5.05 x10^6/uL (3.50-5.40) Hemoglobin 14.2 g/dL (12.0-15.5) Hematocrit 42.0 % (36.0-47.0) Mean Corpuscular Volume 83 fL (79-100) Mean Corpuscular Hemoglobin 28 pg (25-35) Mean Corpuscular Hemoglobin Concent 34 g/dL (31-37) Red Cell Distribution Width 13.4 % (11.5-14.5) Platelet Count 341 x10^3/uL (140-400) Neutrophils (%) (Auto) 80 % (31-73) Lymphocytes (%) (Auto) 15 % (24-48) Monocytes (%) (Auto) 5 % (0-9) Eosinophils (%) (Auto) 0 % (0-3) Basophils (%) (Auto) 1 % (0-3) Neutrophils # (Auto) 9.0 x10^3/uL (1.8-7.7) Lymphocytes # (Auto) 1.7 x10^3/uL (1.0-4.8) Monocytes # (Auto) 0.5 x10^3/uL (0.0-1.1) Eosinophils # (Auto) 0.0 x10^3/uL (0.0-0.7) Basophils # (Auto) 0.1 x10^3/uL (0.0-0.2) Sodium Level 140 mmol/L (136-145) Potassium Level 4.5 mmol/L (3.5-5.1) Chloride Level 101 mmol/L (98-107) Carbon Dioxide Level 27 mmol/L (21-32) Anion Gap 12 (6-14) Blood Urea Nitrogen 11 mg/dL (7-20) Creatinine 0.9 mg/dL (0.6-1.0) Estimated GFR (Cockcroft-Gault) 76.3 BUN/Creatinine Ratio 12 (6-20) Glucose Level 101 mg/dL (70-99) Calcium Level 9.5 mg/dL (8.5-10.1) Total Bilirubin 1.0 mg/dL (0.2-1.0) Aspartate Amino Transf (AST/SGOT) 44 U/L (15-37) Alanine Aminotransferase (ALT/SGPT) 76 U/L (14-59) Alkaline Phosphatase 60 U/L (46-116) Total Protein 8.8 g/dL (6.4-8.2) Albumin 4.8 g/dL (3.4-5.0) Albumin/Globulin Ratio 1.2 (1.0-1.7) Lipase 96 U/L (73-393) Urine Collection Type Unknown Urine Color Bella Urine Clarity Clear Urine pH 8.5 (<5.0-8.0) Urine Specific [place] >=1.030 (1.000-1.030) Urine Protein 100 mg/dL (NEG-TRACE) Urine Glucose (UA) Negative mg/dL (NEG) Urine Ketones (Stick) Trace mg/dL (NEG) Urine Blood Negative (NEG) Urine Nitrite Negative (NEG) Urine Bilirubin Negative (NEG) Urine Urobilinogen Dipstick 1.0 mg/dL (0.2 mg/dL) Urine Leukocyte Esterase Trace (NEG) Urine RBC 1-2 /HPF (0-2) Urine WBC 1-4 /HPF (0-4) Urine Squamous Epithelial Cells Few /LPF Urine Bacteria Few /HPF (0-FEW) Urine Mucus Mod /LPF Assessment/Plan Assessment/Plan N/V- with priro C section, most likely acute self limited gastroenteritis Plan advance diet as tolerated Sb series if no improvement/symptoms owrsen Full note dictated CLAUDINE FOREMAN MD May 12, 2020 13:58
[2020-05-12] MEDS: PANTOPRAZOLE IV PUSH 40 MG VIAL. IVP SCH (14:34)
[2020-05-12 15:00] VITALS: BP 120/72
--- NOTE | 2020-05-12 15:37 | CONS ---
DATE OF CONSULTATION: 05/12/2020 GASTROENTEROLOGY CONSULTATION REASON FOR CONSULTATION: Nausea and vomiting. HISTORY OF PRESENT ILLNESS: This is a 25-year-old female who is 1, para 1, status post . She was admitted to [facility] with acute onset of abdominal pain with nausea and vomiting, it is mainly on her right side. She has had no diarrhea, no fever, or cough. No weakness or numbness. She has tolerated liquids for lunch and wishes to advance her diet. CT scan was unrevealing for obstruction, mass or apparent gallbladder disease. She has otherwise been in good health, has no additional complaints. PAST MEDICAL HISTORY: 1, para 1, status post . ALLERGIES: LATEX. MEDICATIONS: Include pantoprazole, lorazepam, albuterol, ketorolac. 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 FAMILY HISTORY: Noncontributory. REVIEW OF SYSTEMS: Per records. PHYSICAL EXAMINATION: GENERAL: Reveals a well-nourished, well-developed female. She is alert, cooperative, in no acute distress. VITAL SIGNS: Temperature 97.6, pulse 85, respiratory rate 18, blood pressure 125/74. HEENT: Normocephalic, atraumatic head. Pupils and extraocular muscles are not tested. Sclerae anicteric. NECK: Supple. LUNGS: Clear. CARDIOVASCULAR: Reveals an S1, S2 without S3, S4 or appreciable murmur. ABDOMEN: Soft abdomen, normal bowel sounds, without appreciable hepatosplenomegaly. EXTREMITIES: Reveals no cyanosis, clubbing or edema with scar. LABORATORY STUDIES: Hemoglobin 14.2, hematocrit 42.0, white count 11.3, platelet count 341,000. Sodium 140, potassium 4.5, chloride 101, BUN 11, creatinine 0.9, glucose 101, calcium 9.5, total bilirubin 1.0, AST 44, ALT of 76, alkaline phosphatase of 60, total protein 8.8, albumin 4.8. CT scan was unrevealing for obstruction, mass. IMPRESSION: Nausea and vomiting with prior , most likely acute self-limited enteritis, acute hepatitis certainly is possible as well. Therefore, follow serial liver function tests, advance her diet as tolerated. Consider small bowel series if there is persistent symptoms and/or hepatitis serologies if LFTs remain elevated. CLAUDINE FOREMAN MD DR: Darci JOB#: [id number] / [id number]
[2020-05-12 19:00] VITALS: BP 116/78
[2020-05-12 23:00] VITALS: BP 97/39
[2020-05-13] MEDS: IV NORMAL SALINE 1000ML BAG 1,000 ML IV SCH ×2 (01:33→07:37)
[2020-05-13 07:59] VITALS: BP 104/61
[2020-05-13] MEDS: PANTOPRAZOLE IV PUSH 40 MG VIAL. IVP SCH (08:06)
[2020-05-13] MEDS: ENOXAPARIN 40 MG/0.4 ML SYRINGE. SQ SCH (08:07)
--- NOTE | 2020-05-13 10:37 | PDOC ---
PROGRESS NOTES Subjective Subjective Pain resolved, feels well, hong PO well Objective Objective Vital Signs Date Time Temp Pulse Resp B/P (MAP) Pulse Ox O2 Delivery O2 Flow Rate FiO2 05/13/20 07:59 98.5 79 18 104/61 (75) 96 Room Air 98.5 Intake and Output 05/13/20 07:00 # Voids 1 Physical Exam Abdomen: Soft, No tenderness Heart: Regular rate Extremities: No clubbing, No cyanosis General: Alert, Oriented X3 Neuro: Normal speech Psych/Mental Status: Mental status NL Assessment Assessment Problems Medical Problems: (1) Abdominal pain Status: Acute (2) Small bowel obstruction Status: Acute Plan Plan of Care Advance diet, consider discharge Comment Review of Relevant I have reviewed the following items shivani (where applicable) has been applied. Labs Laboratory Tests Test 05/11/20 17:30 05/11/20 17:51 05/11/20 19:00 Bedside Urine HCG, Qualitative Hcg negative (Negative) White Blood Count 11.3 x10^3/uL (4.0-11.0) Red Blood Count 5.05 x10^6/uL (3.50-5.40) Hemoglobin 14.2 g/dL (12.0-15.5) Hematocrit 42.0 % (36.0-47.0) Mean Corpuscular Volume 83 fL (79-100) Mean Corpuscular Hemoglobin 28 pg (25-35) Mean Corpuscular Hemoglobin Concent 34 g/dL (31-37) Red Cell Distribution Width 13.4 % (11.5-14.5) Platelet Count 341 x10^3/uL (140-400) Neutrophils (%) (Auto) 80 % (31-73) Lymphocytes (%) (Auto) 15 % (24-48) Monocytes (%) (Auto) 5 % (0-9) Eosinophils (%) (Auto) 0 % (0-3) Basophils (%) (Auto) 1 % (0-3) Neutrophils # (Auto) 9.0 x10^3/uL (1.8-7.7) Lymphocytes # (Auto) 1.7 x10^3/uL (1.0-4.8) Monocytes # (Auto) 0.5 x10^3/uL (0.0-1.1) Eosinophils # (Auto) 0.0 x10^3/uL (0.0-0.7) Basophils # (Auto) 0.1 x10^3/uL (0.0-0.2) Sodium Level 140 mmol/L (136-145) Potassium Level 4.5 mmol/L (3.5-5.1) Chloride Level 101 mmol/L (98-107) Carbon Dioxide Level 27 mmol/L (21-32) Anion Gap 12 (6-14) Blood Urea Nitrogen 11 mg/dL (7-20) Creatinine 0.9 mg/dL (0.6-1.0) Estimated GFR (Cockcroft-Gault) 76.3 BUN/Creatinine Ratio 12 (6-20) Glucose Level 101 mg/dL (70-99) Calcium Level 9.5 mg/dL (8.5-10.1) Total Bilirubin 1.0 mg/dL (0.2-1.0) Aspartate Amino Transf (AST/SGOT) 44 U/L (15-37) Alanine Aminotransferase (ALT/SGPT) 76 U/L (14-59) Alkaline Phosphatase 60 U/L (46-116) Total Protein 8.8 g/dL (6.4-8.2) Albumin 4.8 g/dL (3.4-5.0) Albumin/Globulin Ratio 1.2 (1.0-1.7) Lipase 96 U/L (73-393) Urine Collection Type Unknown Urine Color Bella Urine Clarity Clear Urine pH 8.5 (<5.0-8.0) Urine Specific [place] >=1.030 (1.000-1.030) Urine Protein 100 mg/dL (NEG-TRACE) Urine Glucose (UA) Negative mg/dL (NEG) Urine Ketones (Stick) Trace mg/dL (NEG) Urine Blood Negative (NEG) Urine Nitrite Negative (NEG) Urine Bilirubin Negative (NEG) Urine Urobilinogen Dipstick 1.0 mg/dL (0.2 mg/dL) Urine Leukocyte Esterase Trace (NEG) Urine RBC 1-2 /HPF (0-2) Urine WBC 1-4 /HPF (0-4) Urine Squamous Epithelial Cells Few /LPF Urine Bacteria Few /HPF (0-FEW) Urine Mucus Mod /LPF Medications Current Medications Sodium Chloride 1,000 ml @ 100 mls/hr Q10H IV Last administered on 05/11/20at 18:23; Start 05/11/20 at 18:09; Stop 05/12/20 at 04:08; Status DC Ondansetron HCl (Zofran) 4 mg 1X ONCE IVP Last administered on 05/11/20at 18:23; Start 05/11/20 at 18:15; Stop 05/11/20 at 18:16; Status DC Ketorolac Tromethamine (Toradol 15mg Vial) 15 mg 1X ONCE IVP Last administered on 05/11/20at 18:23; Start 05/11/20 at 18:15; Stop 05/11/20 at 18:16; Status DC Ondansetron HCl (Zofran) 4 mg PRN Q8HRS PRN IV NAUSEA/VOMITING; Start 05/11/20 at 19:30; Stop 05/12/20 at 14:10; Status DC Sodium Chloride 1,000 ml @ 125 mls/hr Q8H IV Last administered on 05/12/20at 06:50; Start 05/11/20 at 19:24; Stop 05/12/20 at 14:10; Status DC Ketorolac Tromethamine (Toradol 15mg Vial) 15 mg PRN Q6HRS PRN IVP MODERATE PAIN 4-6 Last administered on 05/12/20at 06:56; Start 05/11/20 at 22:45; Stop 05/16/20 at 22:44 Sodium Chloride (Normal Saline Flush) 3 ml QSHIFT PRN IV AFTER MEDS AND BLOOD DRAWS; Start 05/12/20 at 11:45 Sodium Chloride 1,000 ml @ 100 mls/hr Q10H IV Last administered on 05/13/20at 01:33; Start 05/12/20 at 11:37; Stop 05/13/20 at 09:23; Status DC Ondansetron HCl (Zofran) 4 mg PRN Q4HRS PRN IV NAUSEA/VOMITING; Start 05/12/20 at 11:45 Acetaminophen (Tylenol Supp) 650 mg PRN Q4HRS PRN [place] TEMP OVER 100.4F OR MILD PAIN; Start 05/12/20 at 11:45 Docusate Sodium (Colace) 100 mg PRN BID PRN PO HARD STOOLS; Start 05/12/20 at 11:45 Albuterol Sulfate (Ventolin Neb Soln) 2.5 mg PRN Q4HRS PRN NEB SHORTNESS OF BREATH; Start 05/12/20 at 11:45 Guaifenesin (Robitussin) 200 mg PRN Q4HRS PRN PO COUGH; Start 05/12/20 at 11:45 Lorazepam (Ativan) 0.5 mg PRN Q4HRS PRN PO ANXIETY / AGITATION; Start 05/12/20 at 11:45 Lorazepam (Ativan Inj) 2 mg PRN Q4HRS PRN IV ANXIETY / AGITATION; Start 05/12/20 at 11:45 Enoxaparin Sodium (Lovenox 40mg Syringe) 40 mg Q24H SQ ; Start 05/12/20 at 12:00 Pantoprazole Sodium (PROTONIX VIAL for IV PUSH) 40 mg DAILYAC IVP Last administered on 05/13/20at 08:06; Start 05/12/20 at 12:00 Active Scripts Active Reported Effexor Xr (Venlafaxine Hcl) 150 Mg Cap.er.24h 0.5 Cap PO DAILY Vitals/I & O Vital Sign - Last 24 Hours 05/12/20 05/12/20 05/12/20 05/12/20 11:00 15:00 16:29 19:00 Temp 97.6 97.9 97.8 97.6 97.9 97.8 Pulse 85 64 78 Resp 18 18 18 B/P (MAP) 125/74 (91) 120/72 (88) 116/78 (91) Pulse Ox 99 99 100 99 O2 Delivery Room Air 05/12/20 05/12/20 05/13/20 05/13/20 20:00 23:00 03:00 07:51 Temp 98.3 98.3 Pulse 73 Resp 18 B/P (MAP) 97/39 (58) Pulse Ox 94 O2 Delivery Room Air Room Air Room Air 05/13/20 07:59 Temp 98.5 98.5 Pulse 79 Resp 18 B/P (MAP) 104/61 (75) Pulse Ox 96 O2 Delivery Room Air Justicifation of Admission Dx: Justifications for Admission: Justification of Admission Dx: Yes CLAUDINE VANEGAS MD May 13, 2020 10:37
--- NOTE | 2020-05-13 10:52 | PDOC ---
PROGRESS NOTES History of Present Illness History of Present Illness VTE Prophylaxis Ordered VTE Prophylaxis Devices: No VTE Pharmacological Prophylaxi: Yes DISCHARGE DX Assessment/Plan IMPRESSION: Acute small bowel obstruction Several dilated loops of small bowel in the right hemiabdomen. The more distal small bowel is decompressed. Findings are suggestive of small bowel obstruction RESOLVED morbid obesity remote c/section TRANSAMINITIS plan ADMIT CONSULT Gen surgery NPO DVT PROPHYLAXIS gi consult iv fluid support Consider small bowel series if there is persistent symptoms and/or hepatitis serologies if LFTs remain elevated. D/W RN Advance diet, GI OK WITH discharge 05/13 hepatitis serologies as o/p as well as lfts in 1 -2 weeks D/C PLANNING 25 MIN Justicifation of Admission Dx: Justicifation of Admission Dx: Justifications for Admission: Justification of Admission Dx: Yes Vitals Vitals Vital Signs Date Time Temp Pulse Resp B/P (MAP) Pulse Ox O2 Delivery O2 Flow Rate FiO2 05/13/20 07:59 98.5 79 18 104/61 (75) 96 Room Air 98.5 Physical Exam General: Alert, Oriented X3, Cooperative, No acute distress Heart: Regular rate Lungs: Clear Abdomen: Normal bowel sounds, Soft, No tenderness Extremities: No clubbing, No cyanosis Skin: No rashes Labs LABS Exam: CT of abdomen and pelvis without contrast INDICATION: Flank pain TECHNIQUE: Sequential axial images through the abdomen and pelvis obtained without IV contrast. Sagittal and coronal reformatted images were reconstructed from the axial data and reviewed. Comparisons: None FINDINGS: Heart size is normal. No pericardial effusion. Visualized lung bases are clear. No pleural effusion. Evaluation of solid organs is limited secondary to noncontrast technique. Liver, spleen, pancreas, gallbladder and adrenals are unremarkable. No perinephric inflammation or hydronephrosis. No renal or ureteral calculi are identified. Bladder is decompressed not well evaluated. Uterus is nonenlarged. No abnormal adnexal mass. There are several dilated loops of small bowel seen in the right hemiabdomen. The more distal small bowel seen in the pelvis is decompressed. Remainder of the large and small bowel are unremarkable. No free intra-abdominal air or fluid. Abdominal aorta has a normal course and caliber. No enlarged intra-abdominal lymph nodes are identified. No suspicious osseous lesions or acute fractures. IMPRESSION: Several dilated loops of small bowel in the right hemiabdomen. The more distal small bowel is decompressed. Findings are suggestive of small bowel obstruction however transition point is not definitively identified. Continued radiographic follow-up is recommended. Exposure: One or more of the following in the visualized dose reduction techniques were utilized for this examination: 1. Automated exposure control 2. Adjustment of the MA and/or KV according to patient size 3. Use of iterative of reconstructive technique Electronically signed by: Yelena Sneed MD (05/11/2020 7:07 PM) [id number] Assessment and Plan Assessmemt and Plan Problems Medical Problems: (1) Abdominal pain Status: Acute (2) Small bowel obstruction Status: Acute Comment Review of Relevant I have reviewed the following items shivani (where applicable) has been applied. Labs Laboratory Tests Test 05/11/20 17:30 05/11/20 17:51 05/11/20 19:00 Bedside Urine HCG, Qualitative Hcg negative (Negative) White Blood Count 11.3 x10^3/uL (4.0-11.0) Red Blood Count 5.05 x10^6/uL (3.50-5.40) Hemoglobin 14.2 g/dL (12.0-15.5) Hematocrit 42.0 % (36.0-47.0) Mean Corpuscular Volume 83 fL (79-100) Mean Corpuscular Hemoglobin 28 pg (25-35) Mean Corpuscular Hemoglobin Concent 34 g/dL (31-37) Red Cell Distribution Width 13.4 % (11.5-14.5) Platelet Count 341 x10^3/uL (140-400) Neutrophils (%) (Auto) 80 % (31-73) Lymphocytes (%) (Auto) 15 % (24-48) Monocytes (%) (Auto) 5 % (0-9) Eosinophils (%) (Auto) 0 % (0-3) Basophils (%) (Auto) 1 % (0-3) Neutrophils # (Auto) 9.0 x10^3/uL (1.8-7.7) Lymphocytes # (Auto) 1.7 x10^3/uL (1.0-4.8) Monocytes # (Auto) 0.5 x10^3/uL (0.0-1.1) Eosinophils # (Auto) 0.0 x10^3/uL (0.0-0.7) Basophils # (Auto) 0.1 x10^3/uL (0.0-0.2) Sodium Level 140 mmol/L (136-145) Potassium Level 4.5 mmol/L (3.5-5.1) Chloride Level 101 mmol/L (98-107) Carbon Dioxide Level 27 mmol/L (21-32) Anion Gap 12 (6-14) Blood Urea Nitrogen 11 mg/dL (7-20) Creatinine 0.9 mg/dL (0.6-1.0) Estimated GFR (Cockcroft-Gault) 76.3 BUN/Creatinine Ratio 12 (6-20) Glucose Level 101 mg/dL (70-99) Calcium Level 9.5 mg/dL (8.5-10.1) Total Bilirubin 1.0 mg/dL (0.2-1.0) Aspartate Amino Transf (AST/SGOT) 44 U/L (15-37) Alanine Aminotransferase (ALT/SGPT) 76 U/L (14-59) Alkaline Phosphatase 60 U/L (46-116) Total Protein 8.8 g/dL (6.4-8.2) Albumin 4.8 g/dL (3.4-5.0) Albumin/Globulin Ratio 1.2 (1.0-1.7) Lipase 96 U/L (73-393) Urine Collection Type Unknown Urine Color [place] Urine Clarity Clear Urine pH 8.5 (<5.0-8.0) Urine Specific [place] >=1.030 (1.000-1.030) Urine Protein 100 mg/dL (NEG-TRACE) Urine Glucose (UA) Negative mg/dL (NEG) Urine Ketones (Stick) Trace mg/dL (NEG) Urine Blood Negative (NEG) Urine Nitrite Negative (NEG) Urine Bilirubin Negative (NEG) Urine Urobilinogen Dipstick 1.0 mg/dL (0.2 mg/dL) Urine Leukocyte Esterase Trace (NEG) Urine RBC 1-2 /HPF (0-2) Urine WBC 1-4 /HPF (0-4) Urine Squamous Epithelial Cells Few /LPF Urine Bacteria Few /HPF (0-FEW) Urine Mucus Mod /LPF Medications Current Medications Sodium Chloride 1,000 ml @ 100 mls/hr Q10H IV Last administered on 05/11/20at 18:23; Start 05/11/20 at 18:09; Stop 05/12/20 at 04:08; Status DC Ondansetron HCl (Zofran) 4 mg 1X ONCE IVP Last administered on 05/11/20at 18:23; Start 05/11/20 at 18:15; Stop 05/11/20 at 18:16; Status DC Ketorolac Tromethamine (Toradol 15mg Vial) 15 mg 1X ONCE IVP Last administered on 05/11/20at 18:23; Start 05/11/20 at 18:15; Stop 05/11/20 at 18:16; Status DC Ondansetron HCl (Zofran) 4 mg PRN Q8HRS PRN IV NAUSEA/VOMITING; Start 05/11/20 at 19:30; Stop 05/12/20 at 14:10; Status DC Sodium Chloride 1,000 ml @ 125 mls/hr Q8H IV Last administered on 05/12/20at 06:50; Start 05/11/20 at 19:24; Stop 05/12/20 at 14:10; Status DC Ketorolac Tromethamine (Toradol 15mg Vial) 15 mg PRN Q6HRS PRN IVP MODERATE PAIN 4-6 Last administered on 05/12/20at 06:56; Start 05/11/20 at 22:45; Stop 05/16/20 at 22:44 Sodium Chloride (Normal Saline Flush) 3 ml QSHIFT PRN IV AFTER MEDS AND BLOOD DRAWS; Start 05/12/20 at 11:45 Sodium Chloride 1,000 ml @ 100 mls/hr Q10H IV Last administered on 05/13/20at 01:33; Start 05/12/20 at 11:37; Stop 05/13/20 at 09:23; Status DC Ondansetron HCl (Zofran) 4 mg PRN Q4HRS PRN IV NAUSEA/VOMITING; Start 05/12/20 at 11:45 Acetaminophen (Tylenol Supp) 650 mg PRN Q4HRS PRN [place] TEMP OVER 100.4F OR MILD PAIN; Start 05/12/20 at 11:45 Docusate Sodium (Colace) 100 mg PRN BID PRN PO HARD STOOLS; Start 05/12/20 at 11:45 Albuterol Sulfate (Ventolin Neb Soln) 2.5 mg PRN Q4HRS PRN NEB SHORTNESS OF BREATH; Start 05/12/20 at 11:45 Guaifenesin (Robitussin) 200 mg PRN Q4HRS PRN PO COUGH; Start 05/12/20 at 11:45 Lorazepam (Ativan) 0.5 mg PRN Q4HRS PRN PO ANXIETY / AGITATION; Start 05/12/20 at 11:45 Lorazepam (Ativan Inj) 2 mg PRN Q4HRS PRN IV ANXIETY / AGITATION; Start 05/12/20 at 11:45 Enoxaparin Sodium (Lovenox 40mg Syringe) 40 mg Q24H SQ ; Start 05/12/20 at 12:00 Pantoprazole Sodium (PROTONIX VIAL for IV PUSH) 40 mg DAILYAC IVP Last administered on 05/13/20at 08:06; Start 05/12/20 at 12:00 Active Scripts Active Reported Effexor Xr (Venlafaxine Hcl) 150 Mg Cap.er.24h 0.5 Cap PO DAILY Vitals/I & O Vital Sign - Last 24 Hours 05/12/20 05/12/20 05/12/20 05/12/20 11:00 15:00 16:29 19:00 Temp 97.6 97.9 97.8 97.6 97.9 97.8 Pulse 85 64 78 Resp 18 18 18 B/P (MAP) 125/74 (91) 120/72 (88) 116/78 (91) Pulse Ox 99 99 100 99 O2 Delivery Room Air 05/12/20 05/12/20 05/13/20 05/13/20 20:00 23:00 03:00 07:51 Temp 98.3 98.3 Pulse 73 Resp 18 B/P (MAP) 97/39 (58) Pulse Ox 94 O2 Delivery Room Air Room Air Room Air 05/13/20 07:59 Temp 98.5 98.5 Pulse 79 Resp 18 B/P (MAP) 104/61 (75) Pulse Ox 96 O2 Delivery Room Air Justicifation of Admission Dx: Justifications for Admission: Justification of Admission Dx: Yes JOSE GROSSMAN MD May 13, 2020 10:52
[2020-05-13 11:01] LABS: BASO % 1 % (0-3); EOS % 1 % (0-3); HEMATOCRIT 36.5 % (36.0-47.0); HEMOGLOBIN 12.2 g/dL (12.0-15.5); LYMPH # 1.8 x10^3/uL (1.0-4.8); LYMPH % 38 % (24-48); MEAN CORPUSCULAR HEMOGLOBIN 28 pg (25-35); MEAN CORPUSCULAR HGB CONC 33 g/dL (31-37); MEAN CORPUSCULAR VOLUME 85 fL (79-100); MONO # 0.5 x10^3/uL (0.0-1.1); MONO % 10 % (0-9); NEUT # 2.3 x10^3/uL (1.8-7.7); NEUT % 50 % (31-73); PLATELET COUNT 241 x10^3/uL (140-400); RED BLOOD COUNT 4.32 x10^6/uL (3.50-5.40); RED CELL DISTRIBUTION WIDTH 13.4 % (11.5-14.5); WHITE BLOOD COUNT 4.6 x10^3/uL (4.0-11.0)
[2020-05-13 11:34] LABS: ALBUMIN 3.3 g/dL (3.4-5.0); ALBUMIN/GLOBULIN RATIO 0.9 (1.0-1.7); CALCIUM 7.6 mg/dL (8.5-10.1); CREATININE 0.9 mg/dL (0.6-1.0); GFR 76.3; TOTAL BILIRUBIN 0.6 mg/dL (0.2-1.0); TOTAL PROTEIN 6.8 g/dL (6.4-8.2)
[2020-05-13 11:59] VITALS: BP 120/69
--- NOTE | 2020-05-13 14:45 | PDOC ---
G I PROGRESS NOTE Reason for Follow-up abd pain/transaminitis Subjective Tolerating Po Physical Exam Lungs clear CV S1 S2 ABD +BS, soft, minimal tenderness Review of Relevant I have reviewed the following items shivani (where applicable) has been applied. Labs Laboratory Tests Test 05/11/20 17:30 05/11/20 17:51 05/11/20 19:00 05/13/20 10:50 Bedside Urine HCG, Qualitative Hcg negative (Negative) White Blood Count 11.3 x10^3/uL (4.0-11.0) 4.6 x10^3/uL (4.0-11.0) Red Blood Count 5.05 x10^6/uL (3.50-5.40) 4.32 x10^6/uL (3.50-5.40) Hemoglobin 14.2 g/dL (12.0-15.5) 12.2 g/dL (12.0-15.5) Hematocrit 42.0 % (36.0-47.0) 36.5 % (36.0-47.0) Mean Corpuscular Volume 83 fL (79-100) 85 fL (79-100) Mean Corpuscular Hemoglobin 28 pg (25-35) 28 pg (25-35) Mean Corpuscular Hemoglobin Concent 34 g/dL (31-37) 33 g/dL (31-37) Red Cell Distribution Width 13.4 % (11.5-14.5) 13.4 % (11.5-14.5) Platelet Count 341 x10^3/uL (140-400) 241 x10^3/uL (140-400) Neutrophils (%) (Auto) 80 % (31-73) 50 % (31-73) Lymphocytes (%) (Auto) 15 % (24-48) 38 % (24-48) Monocytes (%) (Auto) 5 % (0-9) 10 % (0-9) Eosinophils (%) (Auto) 0 % (0-3) 1 % (0-3) Basophils (%) (Auto) 1 % (0-3) 1 % (0-3) Neutrophils # (Auto) 9.0 x10^3/uL (1.8-7.7) 2.3 x10^3/uL (1.8-7.7) Lymphocytes # (Auto) 1.7 x10^3/uL (1.0-4.8) 1.8 x10^3/uL (1.0-4.8) Monocytes # (Auto) 0.5 x10^3/uL (0.0-1.1) 0.5 x10^3/uL (0.0-1.1) Eosinophils # (Auto) 0.0 x10^3/uL (0.0-0.7) 0.0 x10^3/uL (0.0-0.7) Basophils # (Auto) 0.1 x10^3/uL (0.0-0.2) 0.0 x10^3/uL (0.0-0.2) Sodium Level 140 mmol/L (136-145) 144 mmol/L (136-145) Potassium Level 4.5 mmol/L (3.5-5.1) 4.0 mmol/L (3.5-5.1) Chloride Level 101 mmol/L (98-107) 109 mmol/L (98-107) Carbon Dioxide Level 27 mmol/L (21-32) 28 mmol/L (21-32) Anion Gap 12 (6-14) 7 (6-14) Blood Urea Nitrogen 11 mg/dL (7-20) 6 mg/dL (7-20) Creatinine 0.9 mg/dL (0.6-1.0) 0.9 mg/dL (0.6-1.0) Estimated GFR (Cockcroft-Gault) 76.3 76.3 BUN/Creatinine Ratio 12 (6-20) 7 (6-20) Glucose Level 101 mg/dL (70-99) 75 mg/dL (70-99) Calcium Level 9.5 mg/dL (8.5-10.1) 7.6 mg/dL (8.5-10.1) Total Bilirubin 1.0 mg/dL (0.2-1.0) 0.6 mg/dL (0.2-1.0) Aspartate Amino Transf (AST/SGOT) 44 U/L (15-37) 86 U/L (15-37) Alanine Aminotransferase (ALT/SGPT) 76 U/L (14-59) 175 U/L (14-59) Alkaline Phosphatase 60 U/L (46-116) 49 U/L (46-116) Total Protein 8.8 g/dL (6.4-8.2) 6.8 g/dL (6.4-8.2) Albumin 4.8 g/dL (3.4-5.0) 3.3 g/dL (3.4-5.0) Albumin/Globulin Ratio 1.2 (1.0-1.7) 0.9 (1.0-1.7) Lipase 96 U/L (73-393) Urine Collection Type Unknown Urine Color Bella Urine Clarity Clear Urine pH 8.5 (<5.0-8.0) Urine Specific [place] >=1.030 (1.000-1.030) Urine Protein 100 mg/dL (NEG-TRACE) Urine Glucose (UA) Negative mg/dL (NEG) Urine Ketones (Stick) Trace mg/dL (NEG) Urine Blood Negative (NEG) Urine Nitrite Negative (NEG) Urine Bilirubin Negative (NEG) Urine Urobilinogen Dipstick 1.0 mg/dL (0.2 mg/dL) Urine Leukocyte Esterase Trace (NEG) Urine RBC 1-2 /HPF (0-2) Urine WBC 1-4 /HPF (0-4) Urine Squamous Epithelial Cells Few /LPF Urine Bacteria Few /HPF (0-FEW) Urine Mucus Mod /LPF Laboratory Tests Test 05/13/20 10:50 White Blood Count 4.6 x10^3/uL (4.0-11.0) Red Blood Count 4.32 x10^6/uL (3.50-5.40) Hemoglobin 12.2 g/dL (12.0-15.5) Hematocrit 36.5 % (36.0-47.0) Mean Corpuscular Volume 85 fL (79-100) Mean Corpuscular Hemoglobin 28 pg (25-35) Mean Corpuscular Hemoglobin Concent 33 g/dL (31-37) Red Cell Distribution Width 13.4 % (11.5-14.5) Platelet Count 241 x10^3/uL (140-400) Neutrophils (%) (Auto) 50 % (31-73) Lymphocytes (%) (Auto) 38 % (24-48) Monocytes (%) (Auto) 10 % (0-9) Eosinophils (%) (Auto) 1 % (0-3) Basophils (%) (Auto) 1 % (0-3) Neutrophils # (Auto) 2.3 x10^3/uL (1.8-7.7) Lymphocytes # (Auto) 1.8 x10^3/uL (1.0-4.8) Monocytes # (Auto) 0.5 x10^3/uL (0.0-1.1) Eosinophils # (Auto) 0.0 x10^3/uL (0.0-0.7) Basophils # (Auto) 0.0 x10^3/uL (0.0-0.2) Sodium Level 144 mmol/L (136-145) Potassium Level 4.0 mmol/L (3.5-5.1) Chloride Level 109 mmol/L (98-107) Carbon Dioxide Level 28 mmol/L (21-32) Anion Gap 7 (6-14) Blood Urea Nitrogen 6 mg/dL (7-20) Creatinine 0.9 mg/dL (0.6-1.0) Estimated GFR (Cockcroft-Gault) 76.3 BUN/Creatinine Ratio 7 (6-20) Glucose Level 75 mg/dL (70-99) Calcium Level 7.6 mg/dL (8.5-10.1) Total Bilirubin 0.6 mg/dL (0.2-1.0) Aspartate Amino Transf (AST/SGOT) 86 U/L (15-37) Alanine Aminotransferase (ALT/SGPT) 175 U/L (14-59) Alkaline Phosphatase 49 U/L (46-116) Total Protein 6.8 g/dL (6.4-8.2) Albumin 3.3 g/dL (3.4-5.0) Albumin/Globulin Ratio 0.9 (1.0-1.7) Medications Current Medications Sodium Chloride 1,000 ml @ 100 mls/hr Q10H IV Last administered on 05/11/20at 18:23; Start 05/11/20 at 18:09; Stop 05/12/20 at 04:08; Status DC Ondansetron HCl (Zofran) 4 mg 1X ONCE IVP Last administered on 05/11/20at 1 8:23; Start 05/11/20 at 18:15; Stop 05/11/20 at 18:16; Status DC Ketorolac Tromethamine (Toradol 15mg Vial) 15 mg 1X ONCE IVP Last administered on 05/11/20at 18:23; Start 05/11/20 at 18:15; Stop 05/11/20 at 18:16; Status DC Ondansetron HCl (Zofran) 4 mg PRN Q8HRS PRN IV NAUSEA/VOMITING; Start 05/11/20 at 19:30; Stop 05/12/20 at 14:10; Status DC Sodium Chloride 1,000 ml @ 125 mls/hr Q8H IV Last administered on 05/12/20at 06:50; Start 05/11/20 at 19:24; Stop 05/12/20 at 14:10; Status DC Ketorolac Tromethamine (Toradol 15mg Vial) 15 mg PRN Q6HRS PRN IVP MODERATE PAIN 4-6 Last administered on 05/12/20at 06:56; Start 05/11/20 at 22:45; Stop 05/16/20 at 22:44 Sodium Chloride (Normal Saline Flush) 3 ml QSHIFT PRN IV AFTER MEDS AND BLOOD DRAWS; Start 05/12/20 at 11:45 Sodium Chloride 1,000 ml @ 100 mls/hr Q10H IV Last administered on 05/13/20at 01:33; Start 05/12/20 at 11:37; Stop 05/13/20 at 09:23; Status DC Ondansetron HCl (Zofran) 4 mg PRN Q4HRS PRN IV NAUSEA/VOMITING; Start 05/12/20 at 11:45 Acetaminophen (Tylenol Supp) 650 mg PRN Q4HRS PRN CA TEMP OVER 100.4F OR MILD PAIN; Start 05/12/20 at 11:45 Docusate Sodium (Colace) 100 mg PRN BID PRN PO HARD STOOLS; Start 05/12/20 at 11:45 Albuterol Sulfate (Ventolin Neb Soln) 2.5 mg PRN Q4HRS PRN NEB SHORTNESS OF BREATH; Start 05/12/20 at 11:45 Guaifenesin (Robitussin) 200 mg PRN Q4HRS PRN PO COUGH; Start 05/12/20 at 11:45 Lorazepam (Ativan) 0.5 mg PRN Q4HRS PRN PO ANXIETY / AGITATION; Start 05/12/20 at 11:45 Lorazepam (Ativan Inj) 2 mg PRN Q4HRS PRN IV ANXIETY / AGITATION; Start 05/12/20 at 11:45 Enoxaparin Sodium (Lovenox 40mg Syringe) 40 mg Q24H SQ ; Start 05/12/20 at 12:00 Pantoprazole Sodium (PROTONIX VIAL for IV PUSH) 40 mg DAILYAC IVP Last administered on 05/13/20at 08:06; Start 05/12/20 at 12:00; Stop 05/13/20 at 11:44; Status DC Pantoprazole Sodium (Protonix) 40 mg DAILYAC PO ; Start 05/14/20 at 07:30 Active Scripts Active Reported Effexor Xr (Venlafaxine Hcl) 150 Mg Cap.er.24h 0.5 Cap PO DAILY Vitals/I & O Vital Sign - Last 24 Hours 05/12/20 05/12/20 05/12/20 05/12/20 15:00 16:29 19:00 20:00 Temp 97.9 97.8 97.9 97.8 Pulse 64 78 Resp 18 18 B/P (MAP) 120/72 (88) 116/78 (91) Pulse Ox 99 100 99 O2 Delivery Room Air Room Air 05/12/20 05/13/20 05/13/20 05/13/20 23:00 03:00 07:51 07:59 Temp 98.3 98.5 98.3 98.5 Pulse 73 79 Resp 18 18 B/P (MAP) 97/39 (58) 104/61 (75) Pulse Ox 94 96 O2 Delivery Room Air Room Air Room Air 05/13/20 11:59 Temp 98.6 98.6 Pulse 71 Resp 18 B/P (MAP) 120/69 (86) Pulse Ox 99 O2 Delivery Room Air Problem List Problems Medical Problems: (1) Abdominal pain Status: Acute (2) Small bowel obstruction Status: Acute Assessment Abd pain- resolved, etiology unclear, Transaminitis- with negative Ct scan, hepatitis serologies as o/p as well as lfts in 1 -2 weeks Justicifation of Admission Dx: Justifications for Admission: Justification of Admission Dx: Yes CLAUDINE FOREMAN MD May 13, 2020 14:45
--- NOTE | 2020-05-13 15:26 | PDOC3 ---
Discharge Summary Date of Admission: May 12, 2020 Date of Discharge: May 13, 2020 Follow-Up: 3-5 days Admitting Diagnosis comment: DISCHARGE DX Assessment/Plan IMPRESSION: Acute small bowel obstruction Several dilated loops of small bowel in the right hemiabdomen. The more distal small bowel is decompressed. Findings are suggestive of small bowel obstruction RESOLVED morbid obesity remote c/section TRANSAMINITIS plan ADMIT CONSULT Gen surgery NPO DVT PROPHYLAXIS gi consult iv fluid support Consider small bowel series if there is persistent symptoms and/or hepatitis serologies if LFTs remain elevated. D/W RN Advance diet, CASIMIRO WELL, GI OK WITH discharge 05/13 hepatitis serologies as o/p as well as lfts in 1 -2 weeks D/C PLANNING 25 MIN Justicifation of Admission Dx: Justicifation of Admission Dx: Justifications for Admission: Justification of Admission Dx: Yes Vitals Vitals Vital Signs Date Time Temp Pulse Resp B/P (MAP) Pulse Ox O2 Delivery O2 Flow Rate FiO2 05/13/20 07:59 98.5 79 18 104/61 (75) 96 Room Air 98.5 Physical Exam General: Alert, Oriented X3, Cooperative, No acute distress Heart: Regular rate Lungs: Clear Abdomen: Normal bowel sounds, Soft, No tenderness Extremities: No clubbing, No cyanosis Skin: No rashes Labs LABS Exam: CT of abdomen and pelvis without contrast INDICATION: Flank pain TECHNIQUE: Sequential axial images through the abdomen and pelvis obtained without IV contrast. Sagittal and coronal reformatted images were reconstructed from the axial data and reviewed. Comparisons: None FINDINGS: Heart size is normal. No pericardial effusion. Visualized lung bases are clear. No pleural effusion. Evaluation of solid organs is limited secondary to noncontrast technique. Liver, spleen, pancreas, gallbladder and adrenals are unremarkable. No perinephric inflammation or hydronephrosis. No renal or ureteral calculi are identified. Bladder is decompressed not well evaluated. Uterus is nonenlarged. No abnormal adnexal mass. There are several dilated loops of small bowel seen in the right hemiabdomen. The more distal small bowel seen in the pelvis is decompressed. Remainder of the large and small bowel are unremarkable. No free intra-abdominal air or fluid. Abdominal aorta has a normal course and caliber. No enlarged intra-abdominal lymph nodes are identified. No suspicious osseous lesions or acute fractures. IMPRESSION: Several dilated loops of small bowel in the right hemiabdomen. The more distal small bowel is decompressed. Findings are suggestive of small bowel obstruction however transition point is not definitively identified. Continued radiographic follow-up is recommended. Exposure: One or more of the following in the visualized dose reduction techniques were utilized for this examination: 1. Automated exposure control 2. Adjustment of the MA and/or KV according to patient size 3. Use of iterative of reconstructive technique Electronically signed by: Yelena Sneed MD (05/11/2020 7:07 PM) [id number] Assessment and Plan Assessmemt and Plan Problems Medical Problems: (1) Abdominal pain Status: Acute (2) Small bowel obstruction Status: Acute FINAL DIAGNOSIS Problems Medical Problems: (1) Abdominal pain Status: Acute (2) Small bowel obstruction Status: Acute Brief Hospital Course Ms. Corley is a 25 old [sex] who presented with [ ACUTE SBO ] CONDITION AT DISCHARGE: Improved Discharge Medications Current Medications Sodium Chloride 1,000 ml @ 100 mls/hr Q10H IV Last administered on 05/11/20at 18:23; Start 05/11/20 at 18:09; Stop 05/12/20 at 04:08; Status DC Ondansetron HCl (Zofran) 4 mg 1X ONCE IVP Last administered on 05/11/20at 18:23; Start 05/11/20 at 18:15; Stop 05/11/20 at 18:16; Status DC Ketorolac Tromethamine (Toradol 15mg Vial) 15 mg 1X ONCE IVP Last administered on 05/11/20at 18:23; Start 05/11/20 at 18:15; Stop 05/11/20 at 18:16; Status DC Ondansetron HCl (Zofran) 4 mg PRN Q8HRS PRN IV NAUSEA/VOMITING; Start 05/11/20 at 19:30; Stop 05/12/20 at 14:10; Status DC Sodium Chloride 1,000 ml @ 125 mls/hr Q8H IV Last administered on 05/12/20at 06:50; Start 05/11/20 at 19:24; Stop 05/12/20 at 14:10; Status DC Ketorolac Tromethamine (Toradol 15mg Vial) 15 mg PRN Q6HRS PRN IVP MODERATE PAIN 4-6 Last administered on 05/12/20at 06:56; Start 05/11/20 at 22:45; Stop 05/16/20 at 22:44 Sodium Chloride (Normal Saline Flush) 3 ml QSHIFT PRN IV AFTER MEDS AND BLOOD DRAWS; Start 05/12/20 at 11:45 Sodium Chloride 1,000 ml @ 100 mls/hr Q10H IV Last administered on 05/13/20at 01:33; Start 05/12/20 at 11:37; Stop 05/13/20 at 09:23; Status DC Ondansetron HCl (Zofran) 4 mg PRN Q4HRS PRN IV NAUSEA/VOMITING; Start 05/12/20 at 11:45 Acetaminophen (Tylenol Supp) 650 mg PRN Q4HRS PRN CA TEMP OVER 100.4F OR MILD PAIN; Start 05/12/20 at 11:45 Docusate Sodium (Colace) 100 mg PRN BID PRN PO HARD STOOLS; Start 05/12/20 at 11:45 Albuterol Sulfate (Ventolin Neb Soln) 2.5 mg PRN Q4HRS PRN NEB SHORTNESS OF BREATH; Start 05/12/20 at 11:45 Guaifenesin (Robitussin) 200 mg PRN Q4HRS PRN PO COUGH; Start 05/12/20 at 11:45 Lorazepam (Ativan) 0.5 mg PRN Q4HRS PRN PO ANXIETY / AGITATION; Start 05/12/20 at 11:45 Lorazepam (Ativan Inj) 2 mg PRN Q4HRS PRN IV ANXIETY / AGITATION; Start 05/12/20 at 11:45 Enoxaparin Sodium (Lovenox 40mg Syringe) 40 mg Q24H SQ ; Start 05/12/20 at 12:00 Pantoprazole Sodium (PROTONIX VIAL for IV PUSH) 40 mg DAILYAC IVP Last admin istered on 05/13/20at 08:06; Start 05/12/20 at 12:00; Stop 05/13/20 at 11:44; Status DC Pantoprazole Sodium (Protonix) 40 mg DAILYAC PO ; Start 05/14/20 at 07:30 Active Scripts Active Reported Effexor Xr (Venlafaxine Hcl) 150 Mg Cap.er.24h 0.5 Cap PO DAILY Vital Signs Vital Signs Date Time Temp Pulse Resp B/P (MAP) Pulse Ox O2 Delivery O2 Flow Rate FiO2 05/13/20 11:59 98.6 71 18 120/69 (86) 99 Room Air 98.6 Labs Laboratory Tests Test 05/11/20 17:30 05/11/20 17:51 05/11/20 19:00 05/13/20 10:50 Bedside Urine HCG, Qualitative Hcg negative (Negative) White Blood Count 11.3 x10^3/uL (4.0-11.0) 4.6 x10^3/uL (4.0-11.0) Red Blood Count 5.05 x10^6/uL (3.50-5.40) 4.32 x10^6/uL (3.50-5.40) Hemoglobin 14.2 g/dL (12.0-15.5) 12.2 g/dL (12.0-15.5) Hematocrit 42.0 % (36.0-47.0) 36.5 % (36.0-47.0) Mean Corpuscular Volume 83 fL (79-100) 85 fL (79-100) Mean Corpuscular Hemoglobin 28 pg (25-35) 28 pg (25-35) Mean Corpuscular Hemoglobin Concent 34 g/dL (31-37) 33 g/dL (31-37) Red Cell Distribution Width 13.4 % (11.5-14.5) 13.4 % (11.5-14.5) Platelet Count 341 x10^3/uL (140-400) 241 x10^3/uL (140-400) Neutrophils (%) (Auto) 80 % (31-73) 50 % (31-73) Lymphocytes (%) (Auto) 15 % (24-48) 38 % (24-48) Monocytes (%) (Auto) 5 % (0-9) 10 % (0-9) Eosinophils (%) (Auto) 0 % (0-3) 1 % (0-3) Basophils (%) (Auto) 1 % (0-3) 1 % (0-3) Neutrophils # (Auto) 9.0 x10^3/uL (1.8-7.7) 2.3 x10^3/uL (1.8-7.7) Lymphocytes # (Auto) 1.7 x10^3/uL (1.0-4.8) 1.8 x10^3/uL (1.0-4.8) Monocytes # (Auto) 0.5 x10^3/uL (0.0-1.1) 0.5 x10^3/uL (0.0-1.1) Eosinophils # (Auto) 0.0 x10^3/uL (0.0-0.7) 0.0 x10^3/uL (0.0-0.7) Basophils # (Auto) 0.1 x10^3/uL (0.0-0.2) 0.0 x10^3/uL (0.0-0.2) Sodium Level 140 mmol/L (136-145) 144 mmol/L (136-145) Potassium Level 4.5 mmol/L (3.5-5.1) 4.0 mmol/L (3.5-5.1) Chloride Level 101 mmol/L (98-107) 109 mmol/L (98-107) Carbon Dioxide Level 27 mmol/L (21-32) 28 mmol/L (21-32) Anion Gap 12 (6-14) 7 (6-14) Blood Urea Nitrogen 11 mg/dL (7-20) 6 mg/dL (7-20) Creatinine 0.9 mg/dL (0.6-1.0) 0.9 mg/dL (0.6-1.0) Estimated GFR (Cockcroft-Gault) 76.3 76.3 BUN/Creatinine Ratio 12 (6-20) 7 (6-20) Glucose Level 101 mg/dL (70-99) 75 mg/dL (70-99) Calcium Level 9.5 mg/dL (8.5-10.1) 7.6 mg/dL (8.5-10.1) Total Bilirubin 1.0 mg/dL (0.2-1.0) 0.6 mg/dL (0.2-1.0) Aspartate Amino Transf (AST/SGOT) 44 U/L (15-37) 86 U/L (15-37) Alanine Aminotransferase (ALT/SGPT) 76 U/L (14-59) 175 U/L (14-59) Alkaline Phosphatase 60 U/L (46-116) 49 U/L (46-116) Total Protein 8.8 g/dL (6.4-8.2) 6.8 g/dL (6.4-8.2) Albumin 4.8 g/dL (3.4-5.0) 3.3 g/dL (3.4-5.0) Albumin/Globulin Ratio 1.2 (1.0-1.7) 0.9 (1.0-1.7) Lipase 96 U/L (73-393) Urine Collection Type Unknown Urine Color Bella Urine Clarity Clear Urine pH 8.5 (<5.0-8.0) Urine Specific [place] >=1.030 (1.000-1.030) Urine Protein 100 mg/dL (NEG-TRACE) Urine Glucose (UA) Negative mg/dL (NEG) Urine Ketones (Stick) Trace mg/dL (NEG) Urine Blood Negative (NEG) Urine Nitrite Negative (NEG) Urine Bilirubin Negative (NEG) Urine Urobilinogen Dipstick 1.0 mg/dL (0.2 mg/dL) Urine Leukocyte Esterase Trace (NEG) Urine RBC 1-2 /HPF (0-2) Urine WBC 1-4 /HPF (0-4) Urine Squamous Epithelial Cells Few /LPF Urine Bacteria Few /HPF (0-FEW) Urine Mucus Mod /LPF Laboratory Tests Test 05/13/20 10:50 White Blood Count 4.6 x10^3/uL (4.0-11.0) Red Blood Count 4.32 x10^6/uL (3.50-5.40) Hemoglobin 12.2 g/dL (12.0-15.5) Hematocrit 36.5 % (36.0-47.0) Mean Corpuscular Volume 85 fL (79-100) Mean Corpuscular Hemoglobin 28 pg (25-35) Mean Corpuscular Hemoglobin Concent 33 g/dL (31-37) Red Cell Distribution Width 13.4 % (11.5-14.5) Platelet Count 241 x10^3/uL (140-400) Neutrophils (%) (Auto) 50 % (31-73) Lymphocytes (%) (Auto) 38 % (24-48) Monocytes (%) (Auto) 10 % (0-9) Eosinophils (%) (Auto) 1 % (0-3) Basophils (%) (Auto) 1 % (0-3) Neutrophils # (Auto) 2.3 x10^3/uL (1.8-7.7) Lymphocytes # (Auto) 1.8 x10^3/uL (1.0-4.8) Monocytes # (Auto) 0.5 x10^3/uL (0.0-1.1) Eosinophils # (Auto) 0.0 x10^3/uL (0.0-0.7) Basophils # (Auto) 0.0 x10^3/uL (0.0-0.2) Sodium Level 144 mmol/L (136-145) Potassium Level 4.0 mmol/L (3.5-5.1) Chloride Level 109 mmol/L (98-107) Carbon Dioxide Level 28 mmol/L (21-32) Anion Gap 7 (6-14) Blood Urea Nitrogen 6 mg/dL (7-20) Creatinine 0.9 mg/dL (0.6-1.0) Estimated GFR (Cockcroft-Gault) 76.3 BUN/Creatinine Ratio 7 (6-20) Glucose Level 75 mg/dL (70-99) Calcium Level 7.6 mg/dL (8.5-10.1) Total Bilirubin 0.6 mg/dL (0.2-1.0) Aspartate Amino Transf (AST/SGOT) 86 U/L (15-37) Alanine Aminotransferase (ALT/SGPT) 175 U/L (14-59) Alkaline Phosphatase 49 U/L (46-116) Total Protein 6.8 g/dL (6.4-8.2) Albumin 3.3 g/dL (3.4-5.0) Albumin/Globulin Ratio 0.9 (1.0-1.7) Allergies Allergies Coded Allergies Type Severity Reaction Last Updated Verified Latex, Natural Rubber Allergy Severe Hives 02/07/19 Yes Disposition/Orders: D/C to Home Justicifation of Admission Dx: Justifications for Admission: Justification of Admission Dx: Yes JOSE GROSSMAN MD May 13, 2020 15:26
[2020-05-13 15:50] VITALS: BP 124/68
[2020-05-13] MEDS ORDERED: DOCU-153 PO (15:56)
[2020-05-13] MEDS ORDERED: PANT40TA77 PO (15:56)
--- NOTE | 2020-05-13 15:57 | DISCH ---
DISCHARGE INSTRUCTIONS Condition on Discharge Condition on Discharge: Stable Activity After Discharge Activity Instructions for Disc: Activity as tolerated Lifting Instructions after Dis: No heavy lifting Driving Instructions after Dis: Do not drive today, No driving for 2 weeks Diet after Discharge Diet after Discharge: Regular Checks after Discharge Checks after discharge: Check blood press - daily Contacting the DRHiram after DC Call your doctor for: If your condition worsens Treatment/Equipment after DC Adaptive Equipment Issued: None Warfarin Follow-Up Warfarin Follow UP: SEE GI IN 2 WEEKS, PCP JOSE ARCE MD May 13, 2020 15:57
--- NOTE | 2020-05-13 16:20 | NUR ---
Discharge Note: KOREY SANCHEZ Discharge instructions and discharge home medications reviewed with Patient and a copy given. All questions have been answered and understanding verbalized. The following instructions and handouts were given: information about follow up appointments, medications, small bowel obstruction, and abdominal pain. Discontinued lines and drains: IV line in left hand removed, catheter tip intact. Patient discharged to home with self care with mom, patient ambulated to discharge vehicle.
[2020-05-14] MEDS ORDERED: PANTOPRAZOLE 40 MG TABLET.DR. PO SCH (07:30)
== END 2020-05-13 16:20 | disposition home or self-care (01) | DRG 390 ==
LOC: ER 16:56 → 4 NORTH 19:20 → OBSVTOIN 05-12 11:39
PROVIDERS: ADMIT Internal Medicine; ATTEND Internal Medicine
DX: K56.609 Unspecified intestinal obstruction, unspecified as to partial versus complete obstruction (principal); E66.01 Morbid (severe) obesity due to excess calories; Z82.49 Family history of ischemic heart disease and other diseases of the circulatory system; Z68.34 Body mass index [BMI] 34.0-34.9, adult; G43.909 Migraine, unspecified, not intractable, without status migrainosus; Z91.040 Latex allergy status; R74.0 Nonspecific elevation of levels of transaminase and lactic acid dehydrogenase [LDH]
CPT/HCPCS: 36415; 74176; 80053; 81001; 81025; 83690; 85025; 86705; 86709; 86803; 87340; 94760; C9113; G0378; G0379; J1885; J2405; J7030

== ENCOUNTER → 2020-06-05 | Outpatient (CLI) | payer BC ==
[2020-05-13 15:50] VITALS: BP 124/68
[~2020-06-05] MED LIST changes: +DOCU-153 PO; +PANT40TA77 PO; +VENL150C PO
[2020-06-05 13:14] LABS: ALT (SGPT) 58 U/L (14-59); AST (SGOT) 31 U/L (15-37)
== END | disposition home or self-care (01) ==
LOC: LAB 12:08
PROVIDERS: ATTEND Family Medicine
DX: K56.600 Partial intestinal obstruction, unspecified as to cause (principal)
CPT/HCPCS: 36415; 84450; 84460